=== PATIENT | male | born 1940 | race Caucasian/White ===

== ENCOUNTER → 2016-05-15 | Outpatient (CLI) | payer MEDICARE ==
[~2016-05-15] MED LIST: ACETAMINOHPEN/C1 TAB PO; ADVAIR DISKUS 21 DSK IH; CIPROFLOXACIN500 MG PO; COL-RITE100 MG PO; COREG12.5 MG PO; CYCLOBENZAPRINE10 MG PO; DUONEB 3 MG/3 ML3 M1 NEB; EXELON9.5 MG/24 T; FERROUS SULFAT325 MG PO; FLOMAX0.4 MG PO; FOSAMAX70 MG PO; LATU20TA PO; LEVAQUIN750 MG PO; LIDODERM 5% PATC1 EA T; MOTRIN IB200 MG PO; NAMENDA-14 PO; NICODERM C14 MG/241 T; NICOTINE T21 MG/24 H T; NO MED LIST; NORCO 325 MG-51 TAB PO; NORVASC10 MG PO; PERCOCET 325 MG1 TA2 PO; PREDNICOT20 MG PO; PREDNISONE10 MG PO; PREDNISONE50 MG PO; PROAIR HFA0.09 MG/AC IH; SOMA350 MG PO; SPIRIVA18 MCG IH; TYLENOL W/CODEI1 TA2 PO; TYLENOL WITH CO1 TA1 PO; VIACTIV CALCIUM PO; VISTARIL25 M1 PO; ZESTRIL,PRINIVI10 MG PO
[2016-05-15 13:45] LABS: BUN 16 mg/dl (7-24); EST GLOM FILT AFRICAN AMERICAN > 60 ml/min
== END | disposition home or self-care (01) ==
LOC: LAB 12:48 → CT 14:00
PROVIDERS: Family Medicine
DX: J44.9 Chronic obstructive pulmonary disease, unspecified (principal); I71.4 Abdominal aortic aneurysm, without rupture; J43.9 Emphysema, unspecified

== ENCOUNTER → 2017-05-05 | Outpatient (CLI) | payer MEDICARE ==
[2017-05-05 09:44] LABS: BUN 18 mg/dl (7-24); CREATININE 0.68 mg/dL (0.70-1.30)
== END | disposition home or self-care (01) ==
LOC: CT 09:12 → LAB 09:12 → CT 10:00
PROVIDERS: Family Medicine
DX: I71.4 Abdominal aortic aneurysm, without rupture (principal); I70.8 Atherosclerosis of other arteries; K76.89 Other specified diseases of liver

== ENCOUNTER → 2017-05-13 | Outpatient (CLI) | payer MEDICARE | END | disposition home or self-care (01) | LOC: CT 01:54 | DX: I71.4 Abdominal aortic aneurysm, without rupture (principal); I70.8 Atherosclerosis of other arteries; J43.9 Emphysema, unspecified; M79.606 Pain in leg, unspecified ==

== ENCOUNTER → 2017-11-12 | Outpatient (CLI) | payer MEDICARE ==
[~2017-11-12] MED LIST changes: +ACETAMINOPHEN325 M2 PO; +B12,B-12,B 12500 MC1 PO; +FOSAMAX70 M1 PO; -FOSAMAX70 MG PO; +LEVAQUIN750 M1 PO; +NATURE'S BLEND F1 MG PO; +TYLENOL WITH C1 EACH PO
== END | disposition home or self-care (01) ==
LOC: CT 09:30
DX: J43.9 Emphysema, unspecified (principal); R91.1 Solitary pulmonary nodule; Z98.890 Other specified postprocedural states

== ENCOUNTER → 2018-01-26 | Outpatient (CLI) | payer MEDICARE ==
[~2018-01-26] MED LIST changes: +ADVAIR 250/501 EA INH; +ALBUTEROL2.5 MG/0.5 NEB; +ALPRAZOLAM0.25 M2 PO; +AMLODIPINE BESY10 MG PO; +DOXYCYCLINE100 M3 PO; +MEROPENEM1 G1 IV; +PROAIR HFA8.5 GM INH; +VITAMIN D5000 UNI1 PO; +XANAX0.25 MG PO
== END | disposition home or self-care (01) ==
LOC: MRI 10:41
DX: R41.82 Altered mental status, unspecified (principal); F03.90 Unspecified dementia, unspecified severity, without behavioral disturbance, psychotic disturbance, mood disturbance, and anxiety

== ENCOUNTER 2018-02-14 20:20 | Inpatient (IN) | payer MEDICARE ==
[~2018-02-14] VITALS: Ht 180.3 cm; Wt 57.6 kg
[2018-02-14] VITALS (7 sets, daily range): BP systolic 111–124; BP diastolic 54–70
--- NOTE | ~2018-02-14 | PR ---
[place], [place] PROGRESS NOTE NAME: CLEOPATRA VARGAS [facility] #: [id number] UNIT #: [id number] ROOM: 407 DOCTOR: MARGARET GRANT MD,SEGUN BIRTHDATE: [birth year] DOS: 02/16/2018 PULMONARY PROGRESS NOTE SUBJECTIVE: The patient independently seen and examined in [id number] encounter, history was confirmed. Physical examination performed. The lab for this patient was personally reviewed for today's note. The note done by the medical imaging specialist approved as well. The patient has been feeling better. Continue intravenous cefepime twice a day for the medical management of acute pneumonia. He does have mild cough without any sputum expectoration. Denies symptoms of chest pain or hemoptysis. Appetite is noted. Denies any edema of the lower extremity and symptoms of nausea, vomiting, diarrhea, headache. I was not noted any confusion. OBJECTIVE: VITAL SIGNS: Normal temperature, respiratory rate 18, heart rate 78, blood pressure 112/58-110/52. Pulse ox saturation on 2 liters nasal cannula 97% saturation. HEENT: Head was atraumatic. Eyes nonicterus. NECK: Supple. CARDIOVASCULAR: S1, S2 is audible. LUNGS: Noted without any wheezing or crackles at the present time. ABDOMEN: Soft, nontender, bowel sounds present. EXTREMITIES: No acute edema. VISIBLE SKIN: No lesions or rashes. MUSCULOSKELETAL: Without acute deformities. LABORATORY DATA: CBC today: WBC count 22.4, hemoglobin 8.7, hematocrit 27.9, platelet count of 452,000. BMP noted BUN 21, creatinine normal, glucose 171. Remaining electrolytes normal. Blood culture from 02/14/2018 showed no bacterial growth. CT scan chest that was done without contrast was personally reviewed, patient shows evidence of a new infiltration noted in the left lower lobe, persistent infiltration in the upper lung, which has noted only partially decreased. IMPRESSION: 1. Diffuse emphysema changes were noted. 2. The patient with acute pneumonia, multifocal with current worsening treated with intravenous antibiotics also noted leukocytosis as well. 3. The patient with chronic obstructive pulmonary disease as well. 4. Past history of nicotine abuse. PLAN OF MANAGEMENT: Discontinue the Solu-Medrol because of lack of wheezing. The antibiotic will be started as imipenem to be started. Discontinue cefepime. The patient will be recommended antibiotic therapy intravenously. Rather home or prison facility at least 2-3 weeks with close monitoring. CT scan of the chest resolution of leukocytosis no other abnormality prior to discontinuation because of the current abscess like finding noted with a large pneumonia in the upper lungs. Other supportive therapy, plan of management, care plan and treatment. Usual care. Other supportive treatment as well. [place], [place] PROGRESS NOTE NAME: CLEOPATRA VARGAS UNIT #: [id number] ROOM: 407 DOCTOR: MARGARET GRANT MD,SEGUN BIRTHDATE: [birth year] Additional treatment changes will be made for the patient based on the progression of the illness. The meropenem should cover for this patient. The anaerobic organisms as well, which was suspected with a gram-positive infection. All other supportive plan of management and care, other therapy. Usual care. Additional treatment changes will be made based on progression of illness. Monitor leukocytosis as well, which is simple bronchodilators will be continued. Continue DVT prophylaxis. Thanks for allowing me to participate in the care of this patient. SEGUN ROBLES MD CM:PNTRANS [id number] SEGUN GRANT MD 02/28/18 0823 interface
--- NOTE | ~2018-02-14 | CON ---
[place], [place] REPORT OF CONSULTATION NAME: CLEOPATRA VARGAS [facility] #: [id number] UNIT #: [id number] ROOM: 407 DOCTOR: SEGUN ORTIZ MD BIRTHDATE: [birth year] DOS: 02/15/2018 PULMONARY CONSULTATION, EVALUATION AND MANAGEMENT. The patient was independently seen and examined in [id number] encounter. History was confirmed. Physical examination was performed. Labs reviewed. Assessment and management of the patient today note personally completed. The note done by the medical pathology teacher was approved. HISTORY OF PRESENT ILLNESS: This is a 77-year-old white male patient noted with extensive pneumonia involving the upper lung with possibility of mass lesion suspected in the right upper lobe. The patient has been treated with intravenous antibiotics, broad spectrum in the previous hospitalization and discharged home on doxycycline 100 mg p.o. b.i.d. The patient received tapering dose of prednisone. He has been planned for seeing in my office after discharge for a couple of weeks. The patient came into the hospital. He was complaining of symptoms of having increased shortness of breath associated with nonproductive cough and chest congestion without any hemoptysis. Denies symptoms of chest pain. The patient's cough totally has been decreased since previously. He denies symptoms of nausea, vomiting, but complains of overall weakness. He has been assessed in the Emergency Room and noted with some leukocytosis and the chest x-ray of the patient was assessed and currently admitted to the hospital. The patient was started on the intravenous antibiotics again, broad spectrum from yesterday's hospitalization. REVIEW OF SYSTEMS: Done by the medical pathology teacher and was approved. PAST MEDICAL HISTORY: Noted for: 1. Hospitalization previously in 12/2017 and treated with antibiotic. The patient is supposed to be seen in my office 2 weeks later, but has not been seen after discharge from 01/06/2018. 2. The patient with acute pneumonia noted with possible necrotizing pneumonia involving the upper lung of the patient pleural based, infiltration consolidation mass lesion was also suspected in the right upper lobe. 3. End-stage chronic obstructive pulmonary disease. 4. Chronic hypoxic respiratory failure. 5. History of thoracic aortic aneurysm. 6. Mild intermittent bronchial asthma. 7. Dementia. 8. Essential hypertension. 9. Chronic nicotine dependence. 10. Rule out mass lesion in the upper lungs. SOCIAL HISTORY: The patient is and lives at home. Noted with history of tobacco use from the age of [age] years old, 2 packs of cigarettes per day. PAST SURGICAL HISTORY: 1. Thoracic aortic aneurysm. 2. Appendectomy. 3. Fiberoptic bronchoscopy that was done on 12/27/2017. [place], [place] REPORT OF CONSULTATION NAME: CLEOPATRA VARGAS UNIT #: [id number] ROOM: 407 DOCTOR: SEGUN ORTIZ MD BIRTHDATE: [birth year] DRUG ALLERGIES: NOTED ALLERGY TO: 1. PENICILLIN CAUSING SYNCOPAL EPISODES. 2. ASPIRIN CAUSING PEPTIC ULCERS. MEDICATIONS: Current medications administered noted use of IV Solu-Medrol 60 mg b.i.d., Lovenox, DuoNeb, IV cefepime, Levaquin, vancomycin, and others. PHYSICAL EXAMINATION: GENERAL: This is a 77-year-old white male, currently noted comfortable at this time, resting on the bed without any acute distress. Height of 5 feet 11 inches, weight 127 pounds, BMI 17. VITAL SIGNS: Normal temperature, respiratory rate was noted 30 on admission, currently 20, heart rate 72-88, blood pressure 124/70-122/64. The pulse oxygen saturation noted on 2 liters nasal cannula 97% saturation. HEENT: Head was atraumatic. Eyes nonicterus. NECK: Supple. CARDIOVASCULAR: S1, S2 audible. LUNGS: Moderately decreased breath sounds without any crackles. Scattered expiratory wheezing. ABDOMEN: Soft, flat, nontender, bowel sounds present. EXTREMITIES: Without acute edema. MUSCULOSKELETAL: Without any acute deformities. CENTRAL NERVOUS SYSTEM: Cranial nerves 2-12 intact. LABORATORY DATA: The culture of the bronchial washing and BAL on 12/30/2017 noted with no bacterial growth, final results. PT/PTT was noted yesterday normal. CBC yesterday, WBC count elevated 29.9, hemoglobin 10.4, hematocrit 32.2, platelet count 430,000. CMP of the patient was done on 02/14/2018, glucose 171, BUN and creatinine normal, sodium 134. The BMP this morning, BUN 18, creatinine was normal, glucose 175. CBC, WBC count 15.8, hemoglobin 9.7, hematocrit 30.9, platelet 416,000. Chest x-ray of the patient done was noted with significant reduction of the infiltration, consolidation in the lungs with some residual disease still noted, change of COPD, hyperinflation. IMPRESSION: 1. The patient who has been currently noted with pneumonia, completed the antibiotic course over 2 weeks intravenously and then later on orally, admitted to the hospital with leukocytosis, possibly recurrent resurgence of infection can be completely excluded. 2. Acute exacerbation of chronic obstructive pulmonary disease noted. 3. History of chronic nicotine dependence as well. PLAN OF MANAGEMENT: Obtain another CT scan of the chest in the morning to assess the patient's current resolution of the pulmonary infiltration and to determine antibiotics. The patient would not require any other antibiotics except cefepime, which should cover the patient adequately for gram-negative and gram-positive organism. There was no evidence of MRSA previously noted. The antibiotic for gram-negative coverage will be changed appropriately with cefepime 2 gram b.i.d. instead of 1 gram b.i.d. The Levaquin and the vancomycin [place], [place] REPORT OF CONSULTATION [facility]: [facility] [id number] UNIT #: [id number] ROOM: 407 DOCTOR: SEGUN ORTIZ MD BIRTHDATE: [birth year] were discontinued. Other additional treatment changes will be ordered based on the progression of the illness. Usual care, other supportive therapy, plan of management, other care, plan of treatment. Usual care. Other supportive plan of treatment and therapies. Any other treatment changes necessary for the patient will be ordered after with the progression of the illness. Sputum for Gram stain culture was also ordered for the patient to assess any superimposed or any acute new infection. Monitor temperature curve of the patient closely as well. Dose of Solu-Medrol will be gradually decreased based on progression of illness. Continue DVT prophylaxis. Nicotine abstinence was discussed with the patient. Thanks for allowing me to participate in the care of this patient. SEGUN ROBLES MD CM:CONSTR:REPORT OF CONSULTATION 1327 02/28/18 0820 interface
--- NOTE | ~2018-02-14 | PROC NOTE ---
[place], [place] PROCEDURE NOTE NAME[id number] UN[facility] #: [id number] ROOM: 407 DOCTOR: LINDA DELGADO BIRTHDATE: [birth year] DOS: 02/15/2018 MODIFIED BARIUM SWALLOW LOCATION: [facility], room 407, bed 2. ORDERING PHYSICIAN: Thom Porter. RADIOLOGIST: Dr. Ji. BACKGROUND INFORMATION: The patient is a 77-year-old male who was seen for modified barium swallow. This test was ordered due to reports of difficulty swallowing food. The patient is diagnosed with sepsis and healthcare-acquired pneumonia. He has had recurrent pneumonia and was just recently discharged from the hospital. Recent chest x-ray shows new subtle infiltrate in the left mid lung. Further history is significant for COPD, hypertension, OR, anxiety, aortic aneurysm and dementia. For today's assessment, he was alert and able to follow commands. He was receiving oxygen via nasal cannula. Oral peripheral examination revealed presence of upper denture only. Lingual, labial, and buccal skills were within normal limits in terms of strength, range of motion, and coordination. The patient was able to volitionally cough and swallow. He currently received a regular diet and thin liquids. METHODS AND MATERIALS USED FOR THE EXAM: The patient was positioned in the lateral plane and the exam was viewed under fluoroscopy. The patient was presented with a variety of consistencies to assess swallowing skills including applesauce mixed with barium presented in half teaspoon amounts, barium-coated cookie and sandwich given in bite size pieces and thin liquid barium taken by cup and straw. The patient swallowed in single and consecutive sip size amounts. ORAL PHASE: The patient achieved adequate labial seal around cup, spoon and straw with no anterior loss. Bolus formation was adequate. Oral transit of cookie and sandwich was mild to moderately impaired. Mastication was slow, possibly due to absence of bottom teeth. Tongue to palate contact was within normal limits. Tongue to posterior pharyngeal wall contact was mildly impaired with puree and solids. Velar functioning was within normal limits with no nasal regurgitation. PHARYNGEAL PHASE: The pharyngeal swallow occurred within a timely manner. During the swallow, laryngeal elevation and epiglottic function were within normal limits. No penetration or aspiration occurred with any consistency. He did display pooling in the vallecula post-swallow with puree and solids. He was aware of this as he was able to completely clear it with subsequent swallow. ESOPHAGEAL PHASE: This phase of the swallow was not formally assessed during this exam. IMPRESSIONS AND RECOMMENDATIONS: Based upon assessment results, this 77-year-old patient presents with a mild to moderate oropharyngeal dysphagia [place], [place] PROCEDURE NOTE NAME: CLEOPATRA VARGAS UNIT #: [id number] ROOM: 407 DOCTOR: LINDA DELGADO BIRTHDATE: [birth year] characterized by slow mastication and propulsion possibly due to absence of bottom teeth and residue in the vallecula, which he cleared with subsequent swallow. No penetration or aspiration occurred with any consistency. Recommend the patient remain on present diet, choosing softer food items that are easier to chew. Also, recommend taking small bites and sips, chewing thoroughly and taking extra swallows as needed. Followup therapy is recommended short term to ensure tolerance of diet and adherence to safe swallow precautions. The patient was educated on results and recommendations and verbalized understanding. Thank you very much for this referral. Should you have any questions regarding this patient, please contact the speech pathologist at [phone]. LINDA DELGADO CM:PROCNOTE:PROCEDURE NOTE [id number] LINDA DELGADO
--- NOTE | ~2018-02-14 | PR ---
[place], [place] PROGRESS NOTE NAME: CLEOPATRA VARGAS UNIT #: [id number] ROOM: 407 DOCTOR: SEGUN ORTIZ MD BIRTHDATE: [birth year] DOS: 02/17/2018 PULMONARY PROGRESS ADDENDUM NOTE SUBJECTIVE: The patient was independently seen and examined in [id number] encounter. History was confirmed, physical exam performed, and labs reviewed. Assessment and management for today's note was personally completed. The recommendation was made as well for today's visit. The note done by the medical office scheduler was approved. The patient has been noted comfortable. He continues to get intravenous meropenem, which was started yesterday for the mentioned gram-negative pneumonia with anaerobic infection, responding to treatment, noted with reduction of the symptoms of cough. Denies symptoms of chest pain. OBJECTIVE: VITAL SIGNS: Reviewed, noted as normal. The pulse oxygen saturation on room air was 96% saturation. HEENT: No acute change. NECK: Supple. CARDIOVASCULAR: S1 and S2 audible. LUNGS: Without wheeze or crackles. ABDOMEN: Soft, nontender. Bowel sounds present. EXTREMITIES: Without any acute edema. LABORATORY DATA: CBC today: WBC count was 20.3. BMP this morning noted normal BUN and creatinine. IMPRESSION: 1. Acute pneumonia, necrotizing, gram-negative infection as well as anaerobic infection, currently treated with antibiotics. Oral treatment failed to treat the pneumonia as an outpatient twice requiring the hospitalization. 2. Chronic obstructive pulmonary disease without any acute exacerbation at this time. 3. History of chronic nicotine use. PLAN OF TREATMENT: Plan to transfer to a prison facility with IV antibiotic and meropenem for 3 weeks. Continue, in the meantime, other therapy, plan of management, care plan and treatment, and usual care. Supportive therapy, plan of care, and treatments. [place], [place] PROGRESS NOTE NAME: CLEOPATRA VARGAS UNIT #: [id number] ROOM: 407 DOCTOR: SEGUN ORTIZ MD BIRTHDATE: [birth year] SEGUN ROBLES MD CM:PNTRANS 1205 [id number] SEGUN GRANT MD 02/17/18 1219 interface
--- NOTE | ~2018-02-14 | PR ---
[place], [place] PROGRESS NOTE NAME: CLEOPATRA VARGAS [facility] #: [id number] UNIT #: [id number] ROOM: 407 DOCTOR: MARI GALLO DO BIRTHDATE: [birth year] DOS: 02/16/2018 SUBJECTIVE: The patient was seen and examined at the bedside. He was without complaints today and denied fevers or chills, chest pain, shortness of breath, coughing, wheezing, nausea, abdominal pain or any changes in bowel or bladder habits. OBJECTIVE: VITAL SIGNS: Show temperature at 98.1 degrees Fahrenheit, heart rate at 78, respiratory rate 18, blood pressure 112/58, pulse oximetry 97% on room air. GENERAL APPEARANCE: The patient was awake, alert, responsive, cooperative and in no acute distress. HEENT: Head was normocephalic and atraumatic. There were no lesions or ulcerations noted to the eyes. NECK: Trachea appears midline. HEART: Regular rate and rhythm were noted. Positive S1, S2 sounds were heard. No murmurs, rubs or gallops were appreciated. Bilateral lower extremities were without edema. PULMONARY: The patient was with an occasional cough on examination. No rhonchi, rales or wheezing were heard. ABDOMEN: Soft, nontender to palpation. The abdomen was nondistended. Bowel sounds were present. EXTREMITIES: Bilateral lower extremities were without edema. No clubbing, cyanosis or erythema was noted. LABORATORY DATA: CBC from today shows white count at 22.4, hemoglobin at 8.7, hematocrit 27.9, platelets at 452. Chemistries from today show sodium at 142, potassium 3.9, chloride 110, bicarbonate 26, BUN 21, creatinine 0.53, glucose 171, calcium 7.9. Microbiology remains unchanged from dictation from 02/15/2018. IMPRESSION: 1. Pneumonia. 2. Acute exacerbation of chronic obstructive pulmonary disease. 3. Tobacco abuse. 4. Underweight. 5. Leukocytosis. 6. Normocytic anemia. 7. Thrombocytosis. 8. Hyperchloremia. 9. Hyperglycemia. PLAN OF MANAGEMENT: CT scan without contrast of the chest is still pending as of today. Currently, the patient is on IV cefepime, IV Solu-Medrol, guaifenesin, maintenance fluids, normal saline at 70 mL an hour and bronchodilator therapy. Blood cultures are pending and sputum is to be collected. Again, the patient's supplemental oxygen should be titrated to maintain pulse oximetry at 92% or greater. Pulmonary medicine will continue to follow. [place], [place] PROGRESS NOTE NAME: CLEOPATRA VARGAS UNIT #: [id number] ROOM: [facility] DOCTOR: MARI GALLO DO BIRTHDATE: [birth year] Mari Gallo DO SEGUN ROBLES MD CM:AMBREEN 1040 [id number] MARI GALLO DO 02/16/18 1104 interface
--- NOTE | ~2018-02-14 | EKG ---
[place], [place] ELECTROCARDIOGRAM REPORT NAME: CLEOPATRA VARGAS UNIT #: [id number] ROOM: 407 DOCTOR: LATOYA DRAFT REPORT BIRTHDATE: [birth year] [facility] Test Date: 2018-02-14 Test Time: 20:24:51 Pat Name: CLEOPATRA VARGAS Department: Room: 407 Gender: M Access Developer: RN : 1940 Requested By: DENISE BARTLETT Order Number: [id number] Reading MD: Alfred Coburn MD Measurements Intervals [place] Rate: 91 P: 85 DE: 159 QRS: 78 QRSD: 92 T: 74 QT: 322 QTc: 397 Interpretive Statements Sinus rhythm Right atrial enlargement Probable anteroseptal infarct, old Compared to ECG 01/05/2018 03:16:17 Electronically Signed On 02-19-2018 11:05:24 PDT by Alfred Coburn MD CM:EKGRPT:ELECTROCARDIOGRAM REPORT 23 1105 DENISE TAYLOR DRAFT REPORT DENISE BARTLETT DO
--- NOTE | ~2018-02-14 | PR ---
[place], [place] PROGRESS NOTE NAME: CLEOPATRA VARGAS [facility] #: [id number] UNIT #: [id number] ROOM: 407 DOCTOR: MARI GALLO DO BIRTHDATE: [birth year] DOS: 02/18/2018 SUBJECTIVE: The patient was seen and examined at the bedside. He denies fevers, chills, chest pain, nausea or any changes in bowel or bladder habits. He does admit to an occasional cough, but states that his breathing status is overall improved. He does complain today of abdominal pain, more towards the left upper quadrant and he is wondering if this may be related to gas. OBJECTIVE: VITAL SIGNS: Show temperature 97.9 degrees Fahrenheit, heart rate 89, respiratory rate 16, blood pressure 134/79, pulse oximetry 98% on room air. GENERAL APPEARANCE: The patient was awake, alert, responsive, cooperative and in no acute distress. HEENT: Head was normocephalic and atraumatic. There are no lesions or ulcerations noted to the eyes. NECK: Trachea appears midline. HEART: Regular rate and rhythm were noted. Positive S1, S2 sounds were heard. No murmurs, rubs or gallops were appreciated. The bilateral lower extremities were without edema. PULMONARY: The lungs were with decreased breath sounds. No rhonchi, rales or wheezing were appreciated. ABDOMEN: Soft, nondistended. There was tenderness to deep palpation to the left lower quadrant and right lower quadrants. Bowel sounds were present. EXTREMITIES: Bilateral lower extremities were without edema. No clubbing, cyanosis or erythema was noted. LABORATORY DATA: Most recent CBC from today shows white count at 14.5, hemoglobin 10.7, hematocrit 34.3, platelets at 605. Most recent chemistries from today shows sodium at 141, potassium 3.7, chloride 103, bicarbonate 30, BUN 18, creatinine 0.43, glucose 61, calcium 8.0. Microbiology remains unchanged from previous dictation from 02/15/2018. IMPRESSION: 1. Pneumonia. 2. Chronic obstructive pulmonary disease without exacerbation at this point. 3. Tobacco abuse. 4. Underweight. 5. Leukocytosis. 6. Normocytic anemia. 7. Thrombocytosis, which appears to be worsening over the past few days. 8. Hypoglycemia. PLAN OF MANAGEMENT: Currently, the patient is on IV meropenem, guaifenesin and bronchodilator therapy. The patient remains stable for discharge from a pulmonary standpoint and he should receive IV meropenem for a duration of 3 weeks. It is advised that the patient follow up with Pulmonary Medicine on an outpatient basis in 2 weeks. [place], [place] PROGRESS NOTE NAME: CLEOPATRA VARGAS UNIT #: [id number] ROOM: 407 DOCTOR: MARI GALLO DO BIRTHDATE: [birth year] Mari Gallo DO SEGUN ROBLES MD CM:AMBREEN 1120 1200 MARI GALLO DO 02/18/18 1158 interface
--- NOTE | ~2018-02-14 | PR ---
[place], [place] PROGRESS NOTE NAME: CLEOPATRA VARGAS [facility] #: [id number] UNIT #: [id number] ROOM: 407 DOCTOR: MARI GALLO DO BIRTHDATE: [birth year] DOS: 02/17/2018 SUBJECTIVE: The patient was seen and examined at the bedside. He reports that he feels well. He is experiencing an occasional cough productive for clear sputum, but otherwise denies fevers, chills, chest pain, nausea, vomiting, abdominal pain or any changes in bowel or bladder habits. OBJECTIVE: VITAL SIGNS: Temperature 97.9 degrees Fahrenheit, heart rate 77, respiratory rate 20, blood pressure 109/67 and pulse oximetry 96% on room air. GENERAL APPEARANCE: The patient was awake, alert, responsive, cooperative and in no acute distress. HEENT: Head was normocephalic and atraumatic. There are no lesions or ulcerations noted to the eyes. NECK: Trachea appears midline. HEART: Regular rate and rhythm were noted. Positive S1, S2 sounds were heard. No murmurs, rubs or gallops were appreciated. Bilateral lower extremities were without edema. PULMONARY: The lungs with diminished breath sounds. No rhonchi, rales or wheezing were appreciated. ABDOMEN: Soft, nondistended, nontender to palpation. Bowel sounds were present. EXTREMITIES: Bilateral lower extremities were without edema. No clubbing, cyanosis or erythema was noted. LABORATORY DATA: CBC from today shows white count 20.3, hemoglobin 8.8, hematocrit 28.1 and platelets 520. Chemistries from today show sodium 143, potassium 3.6, chloride 109, bicarbonate 27, BUN 24, creatinine 0.49, glucose 99, calcium 7.9. Microbiology remains unchanged from previous dictation on 02/15/2018. IMPRESSION: 1. Pneumonia. 2. Tobacco abuse. 3. Underweight. 4. Leukocytosis. 5. Normocytic anemia. 6. Thrombocytosis. 7. Lymphopenia. 8. Hyperchloremia. IMAGING STUDIES: Chest CT without contrast obtained on 02/16/2018 showed severe emphysematous changes with both upper lungs demonstrating residual pneumonia seen on a prior CT on 01/05/2018. However, new findings suspicious for left lower lobe pneumonia are also seen as well as trace bilateral pleural effusions. PLAN OF MANAGEMENT: The patient is currently on IV meropenem, guaifenesin and bronchodilator therapy. Pulmonary medicine recommends IV antibiotic treatment with meropenem for 3 weeks' duration. It is recommended that the patient have a PICC line placed and afterwards he would be stable for discharge from a [place], [place] PROGRESS NOTE NAME: CLOEPATRA VARGAS UNIT #: [id number] ROOM: 407 DOCTOR: MARI GALLO DO BIRTHDATE: [birth year] pulmonary standpoint. Mari Gallo DO SEGUN ROBLES MD CM:PNTRANS [id number] MARI GALLO DO 02/17/18 1217 interface
--- NOTE | ~2018-02-14 | EKG ---
[place], [place] ELECTROCARDIOGRAM REPORT NAME: CLEOPATRA VARGAS UNIT #: [id number] ROOM: 407 DOCTOR: LATOYA DRAFT REPORT BIRTHDATE: [birth year] [facility] Test Date: 2018-02-15 Test Time: 02:10:25 Pat Name: CLEOPATRA VARGAS Department: Room: 407 Gender: M Ink Printer: Chivo Terrazas : 1940 Requested By: DENISE BARTLETT Order Number: [id number] Reading MD: Alfred Coburn MD Measurements Intervals [place] Rate: 75 P: 68 SD: 148 QRS: 78 QRSD: 92 T: 78 QT: 402 QTc: 449 Interpretive Statements Sinus rhythm Probable left atrial enlargement Anterior infarct, old Compared to ECG 01/05/2018 03:16:17 Electronically Signed On 02-19-2018 11:05:54 PDT by Alfred Coburn MD CM:EKGRPT:ELECTROCARDIOGRAM REPORT 0210 1105 DENISE TAYLOR DRAFT REPORT DENISE BARTLETT DO
--- NOTE | ~2018-02-14 | CON ---
[place], [place] REPORT OF CONSULTATION NAME: CLEOPATRA VARGAS [facility] #: [id number] UNIT #: [id number] ROOM: 407 DOCTOR: MARI GALLO DO BIRTHDATE: [birth year] DOS: 02/15/2018 REQUESTING PHYSICIAN: Hospitalist service. REASON FOR CONSULTATION: Healthcare-acquired pneumonia. HISTORY OF PRESENT ILLNESS: The patient is a 77-year-old male who initially presented to the ED on 02/14/2018 due to chest pain and shortness of breath. The patient reports that he has been short of breath for the past few days. He denies any coughing or wheezing. He states that his chest pain has been ongoing for the past week. It started in his neck and then radiated down to his anterior chest and currently it is localized to the left side of his chest. A chest x-ray obtained in the ED showed improving patchy airspace disease or consolidation of the upper lobes with new subtle infiltrates in the left mid lung compared to a prior film from December 2017. The patient was diagnosed with severe sepsis secondary to healthcare-associated pneumonia. He was admitted to the general medical floor with telemetry monitoring for further care. The Pulmonary Medicine Service was consulted for further evaluation of the patient's suspected pneumonia. PAST MEDICAL HISTORY: Includes COPD, chronic hypoxic respiratory failure, with baseline use of 3 liters supplemental O2 via nasal cannula, history of a thoracic aortic aneurysm 4.3 cm in size, history of Alzheimer dementia, hypertension, tobacco abuse, anxiety, asthma, folate deficiency, osteoporosis, vitamin B12 deficiency, vitamin D deficiency. PAST SURGICAL HISTORY: Includes history of an aortic aneurysm repair, history of an appendectomy. SOCIAL HISTORY: The patient is a current smoker, reportedly smoking only a few cigarettes daily currently, but had been smoking up to 2 packs a day for 60 years. He denies use of alcohol or illicit drugs. FAMILY HISTORY: The patient's mother in her early 20s reportedly from a penicillin allergy. The patient's father reportedly at age 61 from cancer. ALLERGIES: These include allergy to PENICILLIN and ASPIRIN. CURRENT MEDICATIONS: These include DuoNeb treatments every 4 hours, IV normal saline at 70 mL an hour, folic acid 1 mg daily, IV cefepime 2 grams daily, cholecalciferol 5000 International Units daily, IV Solu-Medrol 60 mg every 12 hours, subcutaneous Lovenox 40 mg daily, guaifenesin 1200 mg every 12 hours, IV Zosyn, IV vancomycin. REVIEW OF SYSTEMS: GENERAL: Denies fevers or chills. HEENT: Denies changes to vision, changes to hearing, any eye pain, ear pain or dysphagia. CARDIOVASCULAR: Admits to chest pain. Denies palpitations. Denies diaphoresis. [place], [place] REPORT OF CONSULTATION NAME: CLEOPATRA VARGAS UNIT #: [id number] ROOM: 407 DOCTOR: MARI GALLO DO BIRTHDATE: [birth year] RESPIRATORY: Admits to shortness of breath. Admits to dyspnea on exertion. Denies coughing. Denies wheezing. Denies production of sputum. ABDOMEN: Denies nausea, vomiting, abdominal pain, constipation, diarrhea, melena or hematochezia. GENITOURINARY: Denies dysuria, hematuria, increased urinary frequency or urgency. NEUROLOGICAL: Denies lightheadedness or dizziness. PSYCHOLOGICAL: Denies anxiety, depression or substance abuse. ENDOCRINE: Denies intolerance to cold or heat. SKIN: Denies any new rashes, ulcers or lesions. PHYSICAL EXAMINATION: VITAL SIGNS: Show temperature at 98.1 degrees Fahrenheit, heart rate at 88, respiratory rate 18, blood pressure 122/64, pulse oximetry 96% on 2 liters via nasal cannula. GENERAL APPEARANCE: The patient was awake, alert, responsive, cooperative and in no acute distress. HEENT: Head was normocephalic and atraumatic. There were no lesions or ulcerations noted to the eyes. NECK: Trachea appears midline. HEART: Regular rate and rhythm were noted. Positive S1, S2 sounds were heard. No murmurs, rubs or gallops were appreciated. The bilateral lower extremities were without edema. PULMONARY: The patient was with expiratory wheezing. No rhonchi or rales were appreciated. ABDOMEN: Soft, nontender to palpation. The abdomen was nondistended. Bowel sounds were present. EXTREMITIES: Bilateral lower extremities were without pitting edema. No clubbing, cyanosis or edema was noted. NEUROLOGIC: The patient was grossly without any focal neurologic deficits. Cranial nerves 2-12 were grossly intact. PSYCHOLOGICAL: The patient was within normal mood and affect. He was a poor historian. SKIN: Warm and dry without any induration or erythema. LABORATORY DATA: CBC From today shows white count at 15.8, hemoglobin 9.6, hematocrit 30.9, platelets 416. Chemistries from today show sodium 137, potassium 4.3, chloride 103, bicarbonate 27, BUN 18, creatinine 0.64, glucose 175, lactic acid 0.9, calcium 8.0, phosphorus 2.5, magnesium 2.2. TSH 0.296, free T4 of 1.09. Cardiac enzymes were cycled x 3 and were negative all 3 times. In terms of microbiology, blood cultures obtained on admission are pending. Sputum culture remains uncollected. IMAGING STUDIES: Chest x-ray obtained on 02/14/2018 again shows improving patchy airspace disease or consolidation of the upper lobes with a new subtle infiltrate in the left mid lung and this is in comparison to a prior film from 01/04/2018. IMPRESSION: 1. Suspected exacerbation of chronic obstructive pulmonary disease. [place], [place] REPORT OF CONSULTATION NAME: CLEOPATRA VARGAS [place] UNIT #: [id number] ROOM: [facility] DOCTOR: MARI GALLO DO BIRTHDATE: [birth year] 2. Bilateral pneumonia, but shows improvement on chest x-ray compared to prior chest x-ray from the end of December. 3. Tobacco abuse. 4. Underweight. 5. Leukocytosis, improving. 6. Normocytic anemia. 7. Thrombocytosis. 8. Leukopenia. 9. Hyperglycemia. 10. Hypermagnesemia. 11. Subclinical hypothyroidism. 12. Chronic obstructive pulmonary disease. 13. Dementia. 14. Hypertension. 15. Chronic respiratory failure, on supplemental oxygen. PLAN OF MANAGEMENT: Based on the patient's recent chest x-ray in comparison to a prior study from the end of December, his pneumonia appears to be improving and due to this antibiotics were deescalated to just IV cefepime. He also remains on IV Solu-Medrol and guaifenesin as well as bronchodilator therapy. We are pending blood cultures and sputum cultures. The patient's supplemental oxygen should be titrated to maintain pulse oximetry at 92% or greater. Pulmonary Medicine will continue to follow along. Mari Gallo DO SEGUN ROBLES MD CM:CONSTR:REPORT OF CONSULTATION 1251 02/15/18 1529 interface
--- NOTE | ~2018-02-14 | PR ---
[place], [place] PROGRESS NOTE NAME: CLEOPATRA VARGAS UNIT #: [id number] ROOM: 407 DOCTOR: SEGUN ORTIZ MD BIRTHDATE: [birth year] DOS: 02/18/2018 ADDENDUM PULMONARY PROGRESS NOTE SUBJECTIVE: The patient has been seen and examined with [id number]-[id number] encounter, history was confirmed. Physical examination performed. Labs reviewed. Assessment and management today noted personally completed. Note done by the emergency medical service manager was approved. The patient was noted comfortable at this time as supposedly to be transferred to the [facility]. The patient refused to do so, would like to be discharged home. The arrangement for home antibiotic for the patient currently been tried to be done by the social media coordinator. He has been noted comfortable at this time, sitting on the chair. Prior to this, the patient was independently seen and examined in [id number] encounter, history was confirmed, physical examination performed, and labs reviewed. Note done by the emergency medical service manager was approved. OBJECTIVE: VITAL SIGNS: For the patient was noted as normal this morning. The pulse oxygen saturation recorded at rest on room air 95% saturation. LUNGS: Noted with decreased breath sounds without any wheeze or crackles. ABDOMEN: Soft, nontender. EXTREMITIES: No edema. LABORATORY DATA: CBC today WBC count decreased to 14.5 from 20,000. IMPRESSION: The patient with acute bilateral pneumonia, currently being treated intravenous antibiotic for anaerobic infection and gram-negative infection with use of meropenem. PLAN OF TREATMENT: Continuation of meropenem antibiotic for 3 weeks as an outpatient. Outpatient assessment to be done for this patient for further continued care for assessment of progression of the pneumonia in about 10 days to 2 weeks. [place], [place] PROGRESS NOTE NAME: CLEOPATRA VARGAS UNIT #: [id number] ROOM: 407 DOCTOR: SEGUN ORTIZ MD BIRTHDATE: [birth year] SEGUN ROBLES MD CM:PNTRANS 1141 [id number] SEGUN GRANT MD 02/19/18 0125 interface
--- NOTE | ~2018-02-14 | EKG ---
[place], [place] ELECTROCARDIOGRAM REPORT NAME: CLEOPATRA VARGAS UNIT #: [id number] ROOM: 407 DOCTOR: LATOYA DRAFT REPORT BIRTHDATE: [birth year] [facility] Test Date: 2018-02-14 Test Time: 23:27:51 Pat Name: CLEOPATRA VARGAS Department: Room: 407 Gender: M Production Support Developer: Chivo Terrazas : 1940 Requested By: DENISE BARTLETT Order Number: [id number] Reading MD: Alfred Coburn MD Measurements Intervals [place] Rate: 77 P: 82 ID: [id number] QRS: 74 QRSD: 90 T: 70 QT: 379 QTc: 429 Interpretive Statements Sinus rhythm Compared to ECG 01/05/2018 03:16:17 Atrial premature complex(es) now present Electronically Signed On 02-19-2018 11:05:40 PDT by Alfred Coburn MD CM:EKGRPT:ELECTROCARDIOGRAM REPORT 2327 1105 DENISE TAYLOR DRAFT REPORT DENISE BARTLETT DO
[~2018-02-14 20:20] MED LIST changes: -ADVAIR 250/501 EA INH; -ALBUTEROL2.5 MG/0.5 NEB; -ALPRAZOLAM0.25 M2 PO; -AMLODIPINE BESY10 MG PO; -MEROPENEM1 G1 IV; -PROAIR HFA8.5 GM INH; -VITAMIN D5000 UNI1 PO; -XANAX0.25 MG PO
[2018-02-14] MEDS ORDERED: ALPRAZOLAM0.25 M2 PO (20:28)
[2018-02-14] MEDS ORDERED: CYCLOBENZAPRINE10 MG PO (20:29)
[2018-02-14] MEDS ORDERED: AMLODIPINE BESY10 MG PO (20:31)
[2018-02-14] MEDS ORDERED: PROAIR HFA8.5 GM INH (20:31)
[2018-02-14] MEDS ORDERED: FOSAMAX70 M1 PO (20:32)
[2018-02-14 20:41] LABS: HEMATOCRIT 32.2 % (42.0-52.0); HEMOGLOBIN 10.4 g/dl (14.0-18.0); MEAN CELL VOLUME 84.7 fl (80.0-94.0); MEAN CORPUSCULAR HGB 27.4 pg (27.0-31.0); MEAN CORPUSCULAR HGB CONC 32.3 g/dl (33.0-37.0); MEAN PLATELET VOLUME 9.3 fl (9.6-12.3); PLATELET COUNT AUTOMATED 430 10*3/uL (130-400); RED CELL DISTRI WIDTH 14.9 % (0-14.5); WHITE BLOOD COUNT 23.9 10*3/uL (4.8-10.8)
[2018-02-14 20:52] LABS: ACT PARTIAL THROMBO TIME 27.9 SECONDS (20.8-31.5)
[2018-02-14 20:59] LABS: ALBUMIN 2.2 gm/dl (3.1-4.5); ALKALINE PHOSPHATASE 98 U/L (45-117); BUN 15 mg/dl (7-24); CHLORIDE 100 mmol/L (98-107); POTASSIUM 3.8 mmol/L (3.5-5.1); SGOT/AST 7 IU/L (3-35); SGPT/ALT 11 U/L (12-78); SODIUM 134 mmol/L (136-145); TOTAL PROTEIN 7.6 gm/dL (6.4-8.2)
[2018-02-14 21:12] LABS: TOTAL CELLS COUNTED 100 #CELLS
[2018-02-14 21:13] LABS: PLATELET SUFFICIENCY HIGH (NORMAL)
[2018-02-15] VITALS: BP 114/48
[2018-02-15 06:06] LABS: HEMATOCRIT 30.9 % (42.0-52.0); HEMOGLOBIN 9.6 g/dl (14.0-18.0); MEAN CELL VOLUME 86.1 fl (80.0-94.0); MEAN CORPUSCULAR HGB 26.7 pg (27.0-31.0); MEAN CORPUSCULAR HGB CONC 31.1 g/dl (33.0-37.0); MEAN PLATELET VOLUME 9.4 fl (9.6-12.3); PLATELET COUNT AUTOMATED 416 10*3/uL (130-400); RED BLOOD COUNT 3.59 10*6/uL (4.50-5.90); RED CELL DISTRI WIDTH 14.8 % (0-14.5); WHITE BLOOD COUNT 15.8 10*3/uL (4.8-10.8)
[2018-02-15 06:18] LABS: BUN 18 mg/dl (7-24); CHLORIDE 103 mmol/L (98-107); CREATININE 0.64 mg/dL (0.70-1.30); FREE T4 1.09 ng/dl (0.76-1.46); PHOSPHOROUS 2.5 mg/dL (2.5-4.9); POTASSIUM 4.3 mmol/L (3.5-5.1); SODIUM 137 mmol/L (136-145)
[2018-02-15 06:24] LABS: THYROID STIM HORMONE (HS) 0.296 uIU/ml (0.358-4.75)
[2018-02-15 07:16] LABS: PLATELET SUFFICIENCY HIGH (NORMAL); POLYCHROMASIA SLIGHT; TOTAL CELLS COUNTED 100 #CELLS
[2018-02-15 07:17] LABS: ROULEAUX SLIGHT
[2018-02-15 08:00] VITALS: BP 122/64
[2018-02-15] MEDS ORDERED: ADVAIR 250/501 EA INH (09:53)
[2018-02-15] MEDS ORDERED: ALBUTEROL2.5 MG/0.5 NEB (09:58)
[2018-02-15 12:00] VITALS: BP 117/59
[2018-02-15 16:00] VITALS: BP 118/58
[2018-02-15 20:00] VITALS: BP 126/56
[2018-02-16] VITALS: BP 110/52
[2018-02-16 06:50] LABS: HEMATOCRIT 27.9 % (42.0-52.0); HEMOGLOBIN 8.7 g/dl (14.0-18.0); MEAN CELL VOLUME 86.9 fl (80.0-94.0); MEAN CORPUSCULAR HGB 27.1 pg (27.0-31.0); MEAN CORPUSCULAR HGB CONC 31.2 g/dl (33.0-37.0); MEAN PLATELET VOLUME 9.4 fl (9.6-12.3); PLATELET COUNT AUTOMATED 452 10*3/uL (130-400); RED BLOOD COUNT 3.21 10*6/uL (4.50-5.90); WHITE BLOOD COUNT 22.4 10*3/uL (4.8-10.8)
[2018-02-16 07:14] LABS: BUN 21 mg/dl (7-24); CHLORIDE 110 mmol/L (98-107); CREATININE 0.53 mg/dL (0.70-1.30); POTASSIUM 3.9 mmol/L (3.5-5.1); SODIUM 142 mmol/L (136-145)
[2018-02-16 07:41] LABS: TOTAL CELLS COUNTED 100 #CELLS
[2018-02-16 07:42] LABS: PLATELET SUFFICIENCY HIGH (NORMAL)
[2018-02-16 08:22] VITALS: BP 112/58
[2018-02-16 12:00] VITALS: BP 118/51
[2018-02-16 16:00] VITALS: BP 122/54
[2018-02-16 20:00] VITALS: BP 103/51
[2018-02-17] VITALS: BP 119/65
[2018-02-17 06:43] LABS: HEMATOCRIT 28.1 % (42.0-52.0); HEMOGLOBIN 8.8 g/dl (14.0-18.0); MEAN CELL VOLUME 85.4 fl (80.0-94.0); MEAN CORPUSCULAR HGB 26.7 pg (27.0-31.0); MEAN CORPUSCULAR HGB CONC 31.3 g/dl (33.0-37.0); MEAN PLATELET VOLUME 9.3 fl (9.6-12.3); PLATELET COUNT AUTOMATED 520 10*3/uL (130-400); RED BLOOD COUNT 3.29 10*6/uL (4.50-5.90); RED CELL DISTRI WIDTH 15.2 % (0-14.5); WHITE BLOOD COUNT 20.3 10*3/uL (4.8-10.8)
[2018-02-17 06:51] LABS: BUN 24 mg/dl (7-24); CHLORIDE 109 mmol/L (98-107); CREATININE 0.49 mg/dL (0.70-1.30); POTASSIUM 3.6 mmol/L (3.5-5.1); SODIUM 143 mmol/L (136-145)
[2018-02-17 07:26] LABS: TOTAL CELLS COUNTED 100 #CELLS
[2018-02-17 07:27] LABS: PLATELET SUFFICIENCY HIGH (NORMAL)
[2018-02-17 08:00] VITALS: BP 109/67
[2018-02-17 12:00] VITALS: BP 121/62
[2018-02-17] MEDS ORDERED: VITAMIN D5000 UNI1 PO (14:59)
[2018-02-17] MEDS ORDERED: MEROPENEM1 G1 IV (14:59)
[2018-02-17] MEDS ORDERED: ALPRAZOLAM0.25 M2 PO (14:59)
[2018-02-17 16:00] VITALS: BP 113/65
[2018-02-17 20:00] VITALS: BP 119/66
[2018-02-18] VITALS: BP 138/68
[2018-02-18 06:57] LABS: HEMOGLOBIN 10.7 g/dl (14.0-18.0); MEAN CELL VOLUME 86.6 fl (80.0-94.0); MEAN CORPUSCULAR HGB CONC 31.2 g/dl (33.0-37.0); MEAN PLATELET VOLUME 8.9 fl (9.6-12.3); PLATELET COUNT AUTOMATED 605 10*3/uL (130-400); RED BLOOD COUNT 3.96 10*6/uL (4.50-5.90); RED CELL DISTRI WIDTH 15.4 % (0-14.5); WHITE BLOOD COUNT 14.5 10*3/uL (4.8-10.8)
[2018-02-18 07:08] LABS: BUN 18 mg/dl (7-24); CHLORIDE 103 mmol/L (98-107); CREATININE 0.43 mg/dL (0.70-1.30); POTASSIUM 3.7 mmol/L (3.5-5.1); SODIUM 141 mmol/L (136-145)
[2018-02-18 07:17] LABS: HEMATOCRIT 34.3 % (42.0-52.0)
[2018-02-18 07:39] LABS: PLATELET SUFFICIENCY HIGH (NORMAL); TOTAL CELLS COUNTED 100 #CELLS
[2018-02-18 08:07] VITALS: BP 134/79
[2018-02-18 12:00] VITALS: BP 119/79
[2018-02-18 15:40] VITALS: BP 117/70
[2018-02-18 20:00] VITALS: BP 136/71
[2018-02-19] VITALS: BP 107/59
[2018-02-19 08:00] VITALS: BP 137/68
== END 2018-02-19 10:08 | disposition home or self-care (01) | DRG 871 ==
LOC: ED 20:20 → EDHOLD 21:52 → 4E 21:52
PROVIDERS: Emergency Medicine; Internal Medicine
PROC: BD1BYZZ Fluoroscopy of Mouth/Oropharynx using Other Contrast (ICD-10-PCS; principal; 2018-02-15)
DX: A41.9 Sepsis, unspecified organism (principal); E43 Unspecified severe protein-calorie malnutrition; J96.21 Acute and chronic respiratory failure with hypoxia; J15.6 Pneumonia due to other Gram-negative bacteria; E87.1 Hypo-osmolality and hyponatremia; J44.0 Chronic obstructive pulmonary disease with (acute) lower respiratory infection; Z68.1 Body mass index [BMI] 19.9 or less, adult; F41.9 Anxiety disorder, unspecified; E87.8 Other disorders of electrolyte and fluid balance, not elsewhere classified; M81.0 Age-related osteoporosis without current pathological fracture; D47.3 Essential (hemorrhagic) thrombocythemia; J45.20 Mild intermittent asthma, uncomplicated; R73.9 Hyperglycemia, unspecified; E83.41 Hypermagnesemia; E03.9 Hypothyroidism, unspecified; E53.8 Deficiency of other specified B group vitamins; G89.29 Other chronic pain; M54.9 Dorsalgia, unspecified; D64.9 Anemia, unspecified; F17.200 Nicotine dependence, unspecified, uncomplicated; G30.9 Alzheimer's disease, unspecified; F02.80 Dementia in other diseases classified elsewhere, unspecified severity, without behavioral disturbance, psychotic disturbance, mood disturbance, and anxiety; F17.210 Nicotine dependence, cigarettes, uncomplicated; R65.20 Severe sepsis without septic shock; I10 Essential (primary) hypertension; I25.2 Old myocardial infarction; Z88.0 Allergy status to penicillin; Z88.6 Allergy status to analgesic agent; Z79.899 Other long term (current) drug therapy; Z90.49 Acquired absence of other specified parts of digestive tract; Z80.9 Family history of malignant neoplasm, unspecified; Z99.81 Dependence on supplemental oxygen; Z71.6 Tobacco abuse counseling

== ENCOUNTER 2018-03-08 23:38 | Inpatient (IN) | payer MEDICARE ==
[~2018-03-08] VITALS: Ht 170.2 cm; Wt 59.5 kg
--- NOTE | ~2018-03-08 | CON ---
[place], [place] REPORT OF CONSULTATION [facility] [id number] UNIT #: [id number] ROOM: [facility] DOCTOR: MARGARET GRANT MD,SEGUN BIRTHDATE: [birth year] DOS: 03/09/2018 PULMONARY CRITICAL CARE ASSESSMENT, CONSULTATION, EVALUATION AND MANAGEMENT REASON FOR CONSULTATION: The patient acute respiratory failure with a pneumothorax, respiratory failure, mechanical ventilation and possibility of air leak with subcutaneous emphysema. HISTORY OF PRESENT ILLNESS: This is a 78-year-old white male patient presented to the Emergency Room and was assessed by the ER physician. The patient arrived in the Emergency Room at after 12:00 a.m. The patient was assessed with the chest x-ray shows evidence of basilar pneumothorax. He was also noted with hypoxia of 100% nonrebreather mask. The patient was intubated and later on 32-port chest tube was inserted in the right hemithorax. Post-insertion of the chest tube, the patient's lung was reported as expanded. He has been developing progressive subcutaneous emphysema after the chest tube and large amount of air leak was suspected with a decrease tidal volume, which has been delivered to the patient because of the possibility of air leak. The patient was seen. He has not been noted with any acute hemodynamic instability. His oxygen was noted as maintained as 90% or greater for with 45% oxygen is control, volume control, mechanical ventilation, tidal volume 450 mL. The patient has a CT scan of the chest that I ordered for patient after my initial assessment further medical management of the current assessment with subcutaneous emphysema management. REVIEW OF SYSTEMS: Could not be completed since the patient is already intubated on mechanical ventilator. PAST MEDICAL HISTORY: 1. Reviewed from past hospitalization, the patient's medical records and hospitalization recently medical history was noted with a large pneumonia, which appeared to be necrotizing involving the right upper lobe posterior subsegment in the left upper lobe as well with history of known centrilobular emphysema. 2. Past history of pneumonia, which has been treated with about 4-5 weeks of antibiotic of meropenem with the bronchoscopy culture noted negative MRSA. The patient gram-positive organism. The patient is responding to treatment, but has failed to make an appointment in the office. The patient has been asked to make an appointment, but he refused to do so last week. I was contacted by the antibiotics administration. 3. History of end-stage chronic obstructive pulmonary disease. 4. Chronic hypoxic respiratory failure. 5. History of a thoracic aortic aneurysm. 6. History of mild intermittent bronchial asthma. 7. History of past dementia. 8. Essential hypertension. 9. Nicotine dependence. 10. Questionable mass in the right upper lung versus pneumonia. PAST SURGICAL HISTORY: Noted, [place], [place] REPORT OF CONSULTATION NAME: CLEOPATRA VARGAS UNIT #: [id number] ROOM: [facility] DOCTOR: KELLY ORTIZ MDM BIRTHDATE: [birth year] 1. Thoracic aortic aneurysm repair. 2. Appendectomy. 3. Fiberoptic bronchoscopy in year 2018. SOCIAL HISTORY: The patient lives at home. He is . Does not have any history of alcohol use, illicit drug use. Tobacco use noted at age of [age] years old, 2 packs of cigarettes per day, not sure if he is currently smoking cigarettes or not. FAMILY HISTORY: Noted noncontributory. DRUG ALLERGIES: 1. REPORTED PENICILLIN CAUSING SYNCOPAL EPISODE. 2. ASPIRIN CAUSING PEPTIC ULCER DISEASE. CURRENT MEDICATIONS: Administered noted use of intravenous propofol, nicotine, Lovenox for DVT prophylaxis, DuoNeb, Mucinex, Levaquin, meropenem, Versed use and vancomycin and morphine sulfate. PHYSICAL EXAMINATION: GENERAL: This is a 78-year-old white male patient currently noted on mechanical ventilator. The patient is sedated. His height was recorded as 5 feet 7 inches, weight 131 pounds. The BMI 20.5. VITAL SIGNS: On was noted as normal temperature, respiratory rate recorded at 38-40. The heart rate of 61-59, blood pressure 103/64-134/67. The pulse oxygen saturation of the patient recorded as 100% on 45% oxygen supplementation. HEENT: Head was atraumatic. The patient is currently intubated. Orogastric tube is in place. NECK: Supple. CARDIOVASCULAR: S1, S2 audible. LUNGS: Noted with diminished breath sounds. Unable to hear breath sounds correctly because of subcutaneous emphysema, which was present in the right anterior lateral wall of the chest wall. Subcutaneous emphysema without extending to the right side of the neck. ABDOMEN: Flat, soft, nontender. Bowel sounds present. EXTREMITIES: Without any acute edema. MUSCULOSKELETAL: No deformities. SKIN: No lesions except dryness with skin changes. CENTRAL NERVOUS SYSTEM: At this time cannot be examined since the patient is sedated. LABORATORY DATA: Lactic acid this morning 1.2 at admission. CBC this morning on admission WBC count of 13.9, hemoglobin 9, hematocrit for 30.7, platelet count 319,000. The PT, PTT for the patient were noted as normal. The CMP on 03/09/2018, glucose 149, BUN normal, creatinine was normal. Albumin 2.8. The chest x-ray shows a pneumothorax present in the right lower portion of the chest. New findings compared with previous chest x-ray. The patient was intubated at that time with appropriate position. The second chest x-ray shows endotracheal tube were present in the right mid thorax with subcutaneous emphysema beginning to be seen. The chest x-ray that was done this morning was [place], [place] REPORT OF CONSULTATION NAME: CLEOPATRA VARGAS UNIT #: [id number] ROOM: [facility] DOCTOR: MARGARET GRANT MD,[facility] BIRTHDATE: [birth year] noted with enlarging subcutaneous edema, unable to assess the lung parenchyma correctly on the right side. The CT scan chest that I ordered was completed and personally examined the patient shows possibility of intraparenchymal chest tube insertion can be excluded. Large pneumothorax was noted with extensive subcutaneous emphysema, which has further worsened. Endotracheal tube was noted in appropriate position. IMPRESSION: 1. The patient who has been currently noted with air leak noted large amount of bubbling with possibly an intraparenchymal chest tube with incomplete resolution of pneumothorax with persistent air leak for this patient. 2. Acute severe hypoxic respiratory failure secondary to the current acute spontaneous pneumothorax, possibility of necrotic pneumonia resulting in spontaneous pneumothorax nearly could be considered. 3. History of chronic obstructive pulmonary disease as well with nicotine dependence noted previously. 4. The patient was managed for the pneumonia as well, possible malignant process certainly still cannot be completely excluded from the hemithorax. 5. Anemia of chronic disease. 6. Physical appearance of protein-calorie malnutrition. PLAN OF TREATMENT: The chest tube has been inserted personally for the patient in the area above, the patient after analyzing CT scan of the chest very carefully. The chest tube was still noted with large amount of air leak. The chest tube originally placed will be kept to just gravity drainage. The second chest tube was connected to suction. The tidal volume were increased 450 mL to 600 mL. The tidal volume for the patient, which effectively delivered to the patient was noted only about 135 mL to 150 mL with respiratory rate decreased to 26 with that. That should be enough resulting in good mechanical ventilatory support. The patient needs to be transferred to another facility for further assessment and management of the current air leak, chest tube management and the ventilatory support. The options of could be considered is a selective intubation of the left lung, obviously surgical intervention definitely will be needed. High frequency ventilation other similar modality could be used for the patient for current bronchopleural fistula. During the thoracotomy, the chest tube, which the first originally placed to be assessed, possibility of intraparenchymal placement. Other supportive therapy, plan of management at this time and usual care. DVT prophylaxis. Ventilator bundle management. Continue sedation. Pain management and intravenous morphine. Assessment and management discussed in detail with primary care attending, Dr. Arellano. Pulmonary critical care evaluation and management excluding any billable procedure was 50 minutes. [place], [place] REPORT OF CONSULTATION NAME: CLEOPATRA VARGAS UNIT #: [id number] ROOM: [facility] DOCTOR: SEGUN ORTIZ MD BIRTHDATE: [birth year] SEGUN ROBLES MD CM:CONSTR:REPORT OF CONSULTATION 1308 03/09/18 1629 interface
--- NOTE | ~2018-03-08 | EKG ---
[place], [place] ELECTROCARDIOGRAM REPORT NAME: CLEOPATRA VARGAS UNIT #: [id number] ROOM: [facility] DOCTOR: LATOYA DRAFT REPORT BIRTHDATE: [birth year] [facility] Test Date: 2018-03-09 Test Time: 00:05:34 Pat Name: CLEOPATRA VARGAS Department: Room: [facility] Gender: M Chief Psychology: CLAUDINE : 1940 Requested By: CARMELO VILLANUEVA Order Number: [id number] Reading MD: Alfred Coburn MD Measurements Intervals [place] Rate: 74 P: 85 [place]: 171 QRS: 85 QRSD: 105 T: 73 QT: 426 QTc: 473 Interpretive Statements Sinus rhythm Borderline right axis deviation Probable anteroseptal infarct, old Compared to ECG 02/15/2018 02:10:25 No significant changes Electronically Signed On 03-11-2018 5:59:58 PDT by Alfred Coburn MD CM:EKGRPT:ELECTROCARDIOGRAM REPORT 0005 [id number] CARMELO VILLANUEVA EPIPHANY DRAFT REPORT CARMELO VILLANUEVA
--- NOTE | ~2018-03-08 | PROC NOTE ---
[place], [place] PROCEDURE NOTE NAME: CLEOPATRA VARGAS [facility] #: [id number] UNIT #: [id number] ROOM: [facility] DOCTOR: MARGARET GRANT MD,SEGUN BIRTHDATE: [birth year] DOS: 03/09/2018 PROCEDURE: Chest tube thoracostomy in the right pleural space. PREOPERATIVE DIAGNOSES: Persistent air leak and persistent pneumothorax with previous chest tube and respiratory failure. POSTOPERATIVE DIAGNOSES: Successful insertion of the chest in the right hemithorax in the pleural space. DESCRIPTION OF PROCEDURE: Informed consent was obtained from the patient's family members. The skin was cleaned with chlorhexidine solution. The local anesthetic was injected. The couple of intercostal space above the previous chest tube was used after analyzing the CT scan chest carefully. A 1% lidocaine was administered in the skin intercostal space during admission of local anesthetic, right pleural space was entered. A small amount was free air was aspirated after large bore needle entered into the pleural space with free fluid aspirated. The guidewire threaded through the needle into the right pleural space without difficulty. Needle was removed. Tract was dilated up to 26 Tajik size. After that, the chest tube #24 Taj[place] was inserted over the guidewire in right hemithorax to 10 cm zayra. The air leak was noted. Chest x-ray was also noted confirming the appropriate placement of the chest tube. The chest tube was connected to Pleur-evac. SEGUN ROBLES MD CM:PROCNOTE:PROCEDURE NOTE 1310 1532 SEGUN GRANT MD
[~2018-03-08 23:38] MED LIST changes: +ADVAIR 250/501 EA INH; +ALBUTEROL2.5 MG/0.5 NEB; +ALPRAZOLAM0.25 M2 PO; +AMLODIPINE BESY10 MG PO; +MEROPENEM1 G1 IV; +PROAIR HFA8.5 GM INH; +VITAMIN D5000 UNI1 PO
[2018-03-08 23:39] VITALS: BP 110/66
[2018-03-08 23:49] VITALS: BP 110/66
[2018-03-09] VITALS (47 sets, daily range): BP systolic 92–140; BP diastolic 44–92
[2018-03-09 00:37] LABS: BASO # 0.1 10*3/uL (0.0-0.1); BASO % 0.5 % (0.0-1.0); EOS # 0.3 10*3/uL (0.0-0.4); EOS % 2.3 % (1.0-4.0); HEMATOCRIT 30.7 % (42.0-52.0); HEMOGLOBIN 9.6 g/dl (14.0-18.0); LYMPH # 1.6 10*3/uL (1.3-4.4); LYMPH % 11.8 % (27.0-41.0); MEAN CORPUSCULAR HGB 26.6 pg (27.0-31.0); MEAN CORPUSCULAR HGB CONC 31.3 g/dl (33.0-37.0); MEAN PLATELET VOLUME 9.4 fl (9.6-12.3); MONO # 0.8 10*3/uL (0.1-1.0); MONO % 5.8 % (3.0-9.0); NEUT % 79.1 % (47.0-73.0); PLATELET COUNT AUTOMATED 319 10*3/uL (130-400); RED BLOOD COUNT 3.61 10*6/uL (4.50-5.90); RED CELL DISTRI WIDTH 15.8 % (0-14.5); WHITE BLOOD COUNT 13.9 10*3/uL (4.8-10.8)
[2018-03-09 00:47] LABS: ACT PARTIAL THROMBO TIME 23.3 SECONDS (20.8-31.5)
[2018-03-09 00:56] LABS: ALBUMIN 2.8 gm/dl (3.1-4.5); ALKALINE PHOSPHATASE 92 U/L (45-117); BUN 15 mg/dl (7-24); CHLORIDE 106 mmol/L (98-107); CREATININE 0.72 mg/dL (0.70-1.30); POTASSIUM 3.9 mmol/L (3.5-5.1); SGOT/AST 16 IU/L (3-35); SGPT/ALT 13 U/L (12-78); SODIUM 142 mmol/L (136-145)
[2018-03-09 00:57] LABS: TROPONIN I < 0.015 ng/ml (<0.045)
[2018-03-09 03:13] LABS: ABG BASE EXCESS 0.1 mmol/L (-2.0-2.0); ABG HCO3 22.7 mmol/l (22-26); ARTERIAL BLOOD GAS PCO2 29.1 mmHg (35-45); ARTERIAL BLOOD GAS PH 7.5 (7.35-7.45)
[2018-03-09 06:29] LABS: BASO % 0.4 % (0.0-1.0); EOS # 0.1 10*3/uL (0.0-0.4); EOS % 0.8 % (1.0-4.0); HEMATOCRIT 27.6 % (42.0-52.0); HEMOGLOBIN 8.6 g/dl (14.0-18.0); LYMPH # 1.5 10*3/uL (1.3-4.4); MEAN CELL VOLUME 82.9 fl (80.0-94.0); MEAN CORPUSCULAR HGB 25.8 pg (27.0-31.0); MEAN CORPUSCULAR HGB CONC 31.2 g/dl (33.0-37.0); MEAN PLATELET VOLUME 9.5 fl (9.6-12.3); MONO # 0.7 10*3/uL (0.1-1.0); MONO % 6.4 % (3.0-9.0); NEUT # 8.9 10*3/uL (2.3-7.9); PLATELET COUNT AUTOMATED 275 10*3/uL (130-400); RED BLOOD COUNT 3.33 10*6/uL (4.50-5.90); RED CELL DISTRI WIDTH 15.6 % (0-14.5); WHITE BLOOD COUNT 11.3 10*3/uL (4.8-10.8)
[2018-03-09 06:48] LABS: ALBUMIN 2.5 gm/dl (3.1-4.5); ALKALINE PHOSPHATASE 77 U/L (45-117); BUN 11 mg/dl (7-24); CHLORIDE 109 mmol/L (98-107); CREATININE 0.56 mg/dL (0.70-1.30); PHOSPHOROUS 1.1 mg/dL (2.5-4.9); POTASSIUM 3.1 mmol/L (3.5-5.1); SGOT/AST 14 IU/L (3-35); SGPT/ALT 12 U/L (12-78); SODIUM 142 mmol/L (136-145)
[2018-03-09 07:38] LABS: ABG BASE EXCESS -2.4 mmol/L (-2.0-2.0); ABG HCO3 22.6 mmol/l (22-26); ABG O2 SATURATION 98.7 % (95-97); ARTERIAL BLOOD GAS PCO2 40.1 mmHg (35-45); ARTERIAL BLOOD GAS PH 7.362 (7.35-7.45)
[2018-03-09 07:39] LABS: BILIRUBIN NEGATIVE (NEGATIVE); BLOOD 2+ (NEGATIVE); CLARITY CLEAR (CLEAR); COLOR YELLOW (YELLOW); GLUCOSE NEGATIVE (NEGATIVE); KETONE NEGATIVE (NEGATIVE); LEUKO ESTERASE NEGATIVE (NEGATIVE); NITRITE NEGATIVE (NEGATIVE); PH 7.5 (5.0-9.0); UROBILINOGEN 0.2 E.U./dl (0.2-1.0)
[2018-03-09 07:56] LABS: BACTERIA TRACE; EPITHELIAL CELLS 0-2; RBC 51-100 rbc/hpf (0-2)
[2018-03-09] MEDS ORDERED: XANAX0.25 MG PO (09:37)
[2018-03-09 15:16] LABS: ABG BASE EXCESS -1.8 mmol/L (-2.0-2.0); ABG O2 SATURATION 97.9 % (95-97); ARTERIAL BLOOD GAS PCO2 20.2 mmHg (35-45); ARTERIAL BLOOD GAS PH 7.579 (7.35-7.45); ARTERIAL BLOOD GAS PO2 81.2 mmHg (80-90)
== END 2018-03-09 15:20 | disposition short-term general hospital (02) | DRG 871 ==
LOC: ED 23:38 → ICCU 03-09 01:36 → EDHOLD 03-09 01:36 → ICCU 03-09 06:27
PROVIDERS: Internal Medicine; Internal Medicine Critical Care Medicine; Internal Medicine Nephrology; Student in an Organized Health Care Education/Training Program
DX: A41.9 Sepsis, unspecified organism (principal); J18.9 Pneumonia, unspecified organism; J96.01 Acute respiratory failure with hypoxia; J93.9 Pneumothorax, unspecified; E44.0 Moderate protein-calorie malnutrition; F41.9 Anxiety disorder, unspecified; F03.90 Unspecified dementia, unspecified severity, without behavioral disturbance, psychotic disturbance, mood disturbance, and anxiety; G89.29 Other chronic pain; M54.9 Dorsalgia, unspecified; I10 Essential (primary) hypertension; F17.210 Nicotine dependence, cigarettes, uncomplicated; R65.20 Severe sepsis without septic shock; D72.810 Lymphocytopenia; R73.9 Hyperglycemia, unspecified; J43.2 Centrilobular emphysema; E55.9 Vitamin D deficiency, unspecified; E53.8 Deficiency of other specified B group vitamins; Z99.81 Dependence on supplemental oxygen; M81.0 Age-related osteoporosis without current pathological fracture; R63.6 Underweight; D63.8 Anemia in other chronic diseases classified elsewhere; Z90.49 Acquired absence of other specified parts of digestive tract; Z84.89 Family history of other specified conditions; Z80.8 Family history of malignant neoplasm of other organs or systems; Z88.0 Allergy status to penicillin; Z68.20 Body mass index [BMI] 20.0-20.9, adult

== ENCOUNTER 2019-01-17 11:06 | Emergency (ER) | payer MEDICARE ==
[~2019-01-17] VITALS: Ht 180.3 cm; Wt 62.1 kg
[~2019-01-17 11:06] MED LIST changes: +XANAX0.25 MG PO
[2019-01-17] MEDS ORDERED: PREDNISONE20 M1 PO (13:23)
== END 2019-01-17 13:37 | disposition home or self-care (01) ==
LOC: ED 11:06
DX: G89.29 Other chronic pain (principal); M54.5 Low back pain; M25.552 Pain in left hip; F17.210 Nicotine dependence, cigarettes, uncomplicated; Z88.0 Allergy status to penicillin; Z88.6 Allergy status to analgesic agent; Z79.899 Other long term (current) drug therapy

== ENCOUNTER 2019-04-19 22:53 | Inpatient (IN) | payer MEDICARE ==
[~2019-04-19 22:53] MED LIST changes: +PREDNISONE20 M1 PO
[2019-04-19 23:20] VITALS: BP 165/70
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
--- NOTE | 2019-04-19 23:50 | NUR ---
ATIVAN GIVEN FOR ANXIETY
[2019-04-20] MEDS ORDERED: CALCITONIN-SAL3.7 ML NAS (00:07)
[2019-04-20] MEDS ORDERED: IRON325 M3 PO (00:11)
[2019-04-20] MEDS ORDERED: XANAX0.5 MG PO (00:12)
[2019-04-20] MEDS ORDERED: DONEPEZIL HYDROC5 MG PO (00:15)
[2019-04-20] MEDS ORDERED: LIDOCAINE PAIN1 EACH T (00:16)
[2019-04-20] MEDS ORDERED: NICODERM CQ1 EAC2 T (00:17)
--- NOTE | 2019-04-20 00:19 | NUR ---
DR MURPHY NOTIFIED OF ADMISSION
--- NOTE | 2019-04-20 02:15 | NUR ---
DR BUTTS HERE TO SEE CLIENT
--- NOTE | 2019-04-20 06:35 | NUR ---
SLEPT 6 HOURS UNINTERUPTED
[2019-04-20 07:46] VITALS: BP 124/85
--- NOTE | 2019-04-20 08:15 | NUR ---
Treatment Plan meeting was held with Dr. Tran, RN, AT, RESOLUTION SPECIALIST-S and Shop Steward. Plan for discharge next week. Pt. is from Home. Will speak to family to discuss discharge Plans.
--- NOTE | 2019-04-20 11:39 | NUR ---
AM GROUP NO AM GROUP WAS CONDUCTED NURSING STUDENTS WERE PRESENT. PT HAS NOT YET BEEN ASSESSED OR GOALS SET. WILL ATTEMPT THIS AFTERNOON
--- NOTE | 2019-04-20 15:41 | NUR ---
PM GROUP/BINGO PT WAS PRESENT FOR AFTERNOON GROUP THERAPY BUT DID NOT PARTICIPATE IN BINGO. PT READ THE NEWSPAPER FOR A WHILE AND WAS HYPERVERBAL. PT IS GRANDIOUS AND DELUSIONAL. 

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
[2019-04-20 19:13] VITALS: BP 134/85
--- NOTE | 2019-04-20 22:22 | NUR ---
MANIC, GRANDIOUS, DISRUPTING. VOICE LOUD. NON STOP FLIGHT OF IDEA TALKING. THINKS HE AND LAID IN THE HOSPITAL BASEMENT THEN [place] FROM THE BECAUSE GOD SAID HE WASN'T READY FOR HIM YET AND TO COME PROTECT THE CHILDREN. CONTINUES TANGENTIAL SPEECH. UNABLE TO REDIRECT HIM OR HOLD MEANINGFUL CONVERSATION HE MUST DOMINATE THE TOPIC. WILL CONTINUE TO REDIRECT AND PROVIDE EMOTIONAL SUPPORT
--- NOTE | 2019-04-21 03:11 | NUR ---
24 HR chart check completed.
[2019-04-21 07:39] LABS: VITAMIN D, 25-HYDROXY 17.9 ng/mL (30-100)
[2019-04-21 08:00] VITALS: BP 136/87
--- NOTE | 2019-04-21 08:15 | NUR ---
Treatment Plan meeting was held with Dr. Tran, RN, AT, LABEL FUSER TENDER-S and Head Swamper in attendance. Plan for discharge Next week. Pt. will return home at discharge with his and Home Health.
--- NOTE | 2019-04-21 08:15 | NUR ---
DR ANNA ON UNIT TO SEE PATIENT
--- NOTE | 2019-04-21 09:05 | NUR ---
PHYSICAL THERAPY Eval completed, pt independent with transfers, amb in hallway independently with good balance, no issues or concerns per stafff. D/C PT at this time no skilled needs, thank you. Anel Carreon PT
--- NOTE | 2019-04-21 11:36 | NUR ---
AM GROUP/EXERCISE AND BRAIN GAMES PT ATTENDED MORNING GROUP THERAPY AND PARTICIPATED MINIMALLY IN THE EXERCISES. PT IS HYPERVERBAL AND AGITATED STATING, "I'M GONNA CALL MY EDITORIAL CARTOONIST AND I WILL HAVE THIS PLACE SHUT DOWN BY MIDNIGHT". PT IS GRANDIOUS AND WILL NOT ACCEPT ANY REALITY. PT CANNOT BE REDIRECTED AT THIS TIME.
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
--- NOTE | 2019-04-21 13:51 | NUR ---
Occupational Therapy evaluation completed on 3 with full eval to follow. Precautions include 3n unit precautions,impulsive,talkative/manic,low complexity level 56123. Recommend no further OT and return home w/ upon d/c. Thank you. Gregorio Richards OTR/L
--- NOTE | 2019-04-21 14:14 | NUR ---
PATIENT IN DINING AREA AT THIS TIME. PATIENT CONTINUES WITH FLIGHT OF IDEAS AND WITH GRANDIOSE DELUSIONS. PATIENT STATING "I KNOW THE CRAFT CENTER DIRECTOR OF THIS HOSPITAL HERE AT THE [facility], I CAN HAVE ALL OVER YOUR JOBS". THIS NURSE WITH ATTEMPT TO DISTRACT AND REDIRECT PATIENT. PATIENT STATING "I'M 86 YEARS OLD AND THAT'S ALL LIKE TO DO IS TALK TO YOU ALL".
--- NOTE | 2019-04-21 14:46 | NUR ---
Shift chart check completed.
--- NOTE | 2019-04-21 15:25 | NUR ---
DR LUCERO UPDATED ABOUT PATIENT REQUEST FOR EYE DROPS FOR DRY EYES. NEW ORDER FOR EYE DROPS PRN RECEIVED
--- NOTE | 2019-04-21 15:35 | NUR ---
PM GROUP/LEISURE INTERESTS PT ATTENDED AFTERNOON GROUP AND PARTICIPATED BY READING THE NEWSPAPER AND PLAYING 500 WITH THIS BRUSH MAKER. PT WAS STILL HYPERVERBAL BUT LESS GRANDIOUS AND WAS REMINISCING. PT EXHIBITED NO AGITATION AND STATED, "IF I HAVE TO STAY HERE A WHILE, WELL THAT'S OKAY, YOU ALL HAVE BEEN SO NICE TO ME"
[2019-04-21 19:40] VITALS: BP 135/85
--- NOTE | 2019-04-22 04:34 | NUR ---
24 HR chart check completed.
--- NOTE | 2019-04-22 04:44 | NUR ---
p- REMAINS HYPERVERBAL WITH GRANDIOS DELUSIONS. i- ENCOURAGE MEDICATION COMPLIANCE AND REDIRECT. r - MED COMPLIANT WITH MEDS. 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
--- NOTE | 2019-04-22 05:26 | NUR ---
PATIENT SLEPT ABOUT 5 HOURS UNINTERRUPTED. WAS MEDICATED WITH PRN TYLENOL AT 12:10 FOR C/O BACK PAIN. MEDICATION HELPFUL.
[2019-04-22 07:52] VITALS: BP 123/73
--- NOTE | 2019-04-22 08:08 | NUR ---
DR. JOHN ON UNIT TO ASSESS PT, UPDATE PROVIDED.
--- NOTE | 2019-04-22 10:17 | NUR ---
P: PT GRANDIOSE, STATING TO STAFF THAT HIS GRANDFATHER LIVED TO BE 136 YEARS OLD AND HE HOPE HE LIVES THAT LONG. PT HYPERVERBAL AND INTRUSIVE/DISRUPTIVE TO OTHERS I: PRESENT REALITY AND RE-ORIENT, PROVIDE EMOTIONAL SUPPORT AND 1:1 FOR PT TO VOICE FEELINGS, ENCOURAGE MED COMPLIANCE R: PT ALERT TO PERSON AND PLACE. PT CONTINUES TO TALK NON-STOP AND BE INTRUSIVE/DISRUPTIVE TO OTHERS. PT UNRECEPTIVE TO RE-ORIENTATION, REMAINS GRANDIOSE. PT AMBULATORY THROUGHOUT THE UNIT, GAIT STEADY. PT CONTINENT OF BOWEL AND BLADDER. PT SHOWERED THIS SHIFT. PT DENIES ANY SUICIDAL THOUGHTS. NO HALLUCINATIONS NOTED P: MONITOR PT BEHAVIORS ON Q15 MIN SAFETY CHECKS, ENCOURAGE MED COMPLIANCE AND PROVIDE MED EDUCATION, PROVIDE EMOTIONAL SUPPORT AND 1:1 FOR PT TO VOICE FEELINGS, PRESENT REALITY AND RE-ORIENT
--- NOTE | 2019-04-22 11:54 | NUR ---
AM GROUP/EXERCISE/MUSIC/GAMES PT ATTENDED AND PARTICIPATED IN ALL GROUP ACTIVITIES. PT PLEASANT AND ON TASK ALTHOUGH HYPER VERBAL PT DID NOT EXPRESS ANY AGITATION OR PARANOID DELUSIONS AT THIS TIME. PT WILL CONTINUE TO ATTEND AN DPARTICIPATE IN FUTURE GROUP SESSIONS.
--- NOTE | 2019-04-22 15:51 | NUR ---
PM GROUP/CRAFTS/MUSIC PT ATTENDED AND PARTICIPATED IN ALL ACTIVITY'S. PT PLEASANT AND CONTINUES TO BE HYPERVERBAL. PT EXPRESSED NO AGITATION OR PARANOID DELUSIONS AT THIS TIME. PT WILL CONTINUE TO ATTEND AND PARTICIPATE IN FUTURE GROUP SESSIONS.
[2019-04-22 19:58] VITALS: BP 122/75
--- NOTE | 2019-04-22 21:47 | NUR ---
Patient alert to person with confusion noted. ST/LT memory deficits noted. Patient having flight of ideas and very hyperverbal. No signs of any hallucinations noted at this time. Patient compliant with HS medications without any difficulty. Redirected/reoriented as needed. Provided emotional support also as needed. Plan to continue to encourage medication compliance and continue to provide emotional support. Also continue to redirect/reorient when needed/appropriate. Will continue to monitor moods and behaviors. Q 15 minute safety checks continued and maintained. See [facility] flowsheet for further documentation.
--- NOTE | 2019-04-23 00:16 | NUR ---
24 HR chart check completed.
--- NOTE | 2019-04-23 06:35 | NUR ---
Patient slept approx. 8+ hours throughout shift. Q 15 minute safety checks continued and maintained.
--- NOTE | 2019-04-23 08:06 | NUR ---
PT AWAKE, ALERT AND VERBAL. RESPS EASY AND EVEN ON ROOM AIR. EATING BREAKFAST WITH PEERS IN DINING ROOM AT THIS TIME. ARABELLA PMHNP-BC ON UNIT TO SEE PT AT THIS TIME, UPDATE GIVEN.
[2019-04-23 08:49] VITALS: BP 125/67
--- NOTE | 2019-04-23 09:25 | NUR ---
AND ON UNIT TO SEE PT AT THIS TIME.
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
--- NOTE | 2019-04-23 14:02 | NUR ---
ON UNIT TO ASSESS PT AT THIS TIME. STATES THE SMALL AMOUNT OF EDEMA PRESENT CAN LIKELY BE ATTRIBUTED TO AMLODIPINE. NNO RECEIVED AT THIS TIME.
--- NOTE | 2019-04-23 14:10 | NUR ---
PRN TYLENOL 650MG PO GIVEN AT THIS TIME PER PT REQUEST FOR C/O LOW BACK PAIN RATED LEVEL 6/10. PT STATES "ITS NOT TOO BAD BUT I WANT TO TAKE THIS TYLENOL AND GO LAY DOWN". WILL MONITOR FOR MEDICATION EFFECTIVENESS.
[2019-04-23 17:35] VITALS: BP 138/74
--- NOTE | 2019-04-23 17:35 | NUR ---
PT STATES TYLENOL GIVEN EARLIER IN THE SHIFT EFFECTIVE FOR RELIEF OF PAIN.
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
--- NOTE | 2019-04-23 21:41 | NUR ---
TYLENOL GIVEN FOR C/O 9/10 BACK PAIN. P--GRANDIOSE AND DELUSIONAL I--TRIED TO DISCUSS THE EVENTS OF THE DAY WITHOUT SUCCESS. REVIEWED HIS MEDICATIONS. GAVE HIM TIME FOR A 1:1. ASKED WHERE LEFT EAR HEARING AID WAS. 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 THOSE DAUGHTERS OF MINE TOOK MY HEARING AID AND SAID THEY WOULD CHARGE IT UP AND BRING IT BACK BUT THEY DIDN'T COME AT NOON. YEAH MY BACK HURTS SO I NEED TYLENOL OR I CAN'T SLEEP P-CONTINUE REDIRECTION. MONITOR FOR CHANGES IN MOOD/BEHAVIOR/ MONITOR PAIN LEVEL AND SAFETY. PROVIDE EMOTIONAL SUPPORT.
--- NOTE | 2019-04-23 23:00 | NUR ---
EYES CLOSED. RESP EASY. APPEARS TYLENOL EFFECTIVE
--- NOTE | 2019-04-24 03:05 | NUR ---
TYLENOL GIVEN FOR C/O 02/16/ BACK PAIN
--- NOTE | 2019-04-24 04:51 | NUR ---
APPEARS TYLENOL EFFECTIVE. RESTING WITH EYES OPENENED 24 HR chart check completed.
[2019-04-24 07:54] VITALS: BP 154/69
--- NOTE | 2019-04-24 08:15 | NUR ---
Treatment Plan meeting was held with Dr. Tran, RN, AT, CRISIS NURSE-S and Elevator Service Mechanic in attendance. Plan for discharge at the end of the week, beginning of next week. Pt. will return home with his .
--- NOTE | 2019-04-24 08:40 | NUR ---
ON UNIT TO SEE PT AT THIS TIME.
--- NOTE | 2019-04-24 10:07 | NUR ---
PRN CEPACOL LOZENGE GIVEN AT THIS TIME PER PT REQUEST FOR C/O SORE THROAT. WILL MONITOR FOR EFFECTIVENESS.
--- NOTE | 2019-04-24 10:10 | NUR ---
PT REQUESTS TOENAILS BE CLIPPED. THIS NURSE ASSESSED, TOENAILS LONG, NO EDEMA NOTED TO FEET OR ANKLES. MADE AWARE, STATES TO ORDER PODIATRY CONSULT.
--- NOTE | 2019-04-24 11:00 | NUR ---
CEPACOL EFFECTIVE AT THIS TIME.
--- NOTE | 2019-04-24 11:06 | NUR ---
CALL PLACED TO PODIATRY RESIDENT AT [phone], MADE AWARE OF CONSULT FOR TOENAIL CARE.
--- NOTE | 2019-04-24 11:39 | NUR ---
AM GROUP/EXERCISE AND CURRENT EVENTS PT WAS PRESENT FOR MORNING GROUP THERAPY BUT DID NOT PARTICIPATE. PT WAS LESS HYPERVERBAL THAN LAST WEEK. PT WAS PLEASANT AND EXHIBITED NO AGITATION WHILE IN GROUP
--- NOTE | 2019-04-24 12:41 | NUR ---
Met with pt prior to his discharge today. Informed pt that there are no AA groups within walking distance of his home. Did provide pt with information about [facility], which is near to pt, that provides meetings for those fighting addictions. Pt stated that he felt ready for discharge and that he is looking forward to going home. Pt denies depression and suicidal ideations. Also provided pt with a brochure for [employer] [facility] to assist with pt's transportation needs.
--- NOTE | 2019-04-24 12:45 | NUR ---
Patient is discharging to home today. Follow-up was scheduled with Shazia MESA at [facility], who will then refer pt for psychiatry and case management. Patient was pleasant and cooperative during his stay. He had a tendency to remain outside of group activities. Pt denied depressed mood at discharge. Pt did voice that he would like to stop ETOH abuse but was not interested in anything other than AA meetings. Explored options for pt and there were no meetings within walking distance of pt's home. Pt was given information about [facility], which is located near pt's home.
--- NOTE | 2019-04-24 12:55 | NUR ---
PROVIDED PHYSICIAN SIGNED ORIGINAL DNR[facility] PAPERWORK FROM HOME. COPY PLACED ON PT CHART AND COMPUTER UPDATED.
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
--- NOTE | 2019-04-24 14:18 | NUR ---
PT REQUESTS CEPACOL LOZENGE AT THIS TIME. FREQUENCY IS EVERY 6 HOURS PER PHYSICIAN ORDER. CALL PLACED TO , STATES HE WILL ADJUST FREQUENCY.
--- NOTE | 2019-04-24 15:38 | NUR ---
PM GROUP/WREATHS PT ATTENDED AND PARTICIPATED IN ALL GROUP ACTIVITIES. PT WAS TALKATIVE BUT ON TASK. PT EXPRESSED NO DELUSIONS WHILE IN GROUP.
--- NOTE | 2019-04-24 15:56 | NUR ---
PRN CEPACOL LOZENGE GIVEN AT THIS TIME PER PT REQUEST FOR C/O "SCRATCHY" THROAT. WILL MONITOR FOR EFFECTIVENESS.
--- NOTE | 2019-04-24 16:29 | NUR ---
SHIFT CHART CHECK COMPLETED.
[2019-04-24 16:59] VITALS: BP 125/77
[2019-04-24 19:35] VITALS: BP 128/72
--- NOTE | 2019-04-24 19:35 | NUR ---
one hearing aid given at clients request. one remains on charge
--- NOTE | 2019-04-24 20:42 | NUR ---
EVENING/MUSIC/CRAFTS/GAME PT IN ATTENDANCE AND PARTICIPATING IN ALL ACTIVITY. PT PLEASANT AND ON TASK. PT VERBAL BUT NOT HYPERVERBAL AT THIS TIME.PT DID NOT BECOME AGITATION OR EXPRESS ANY PARANOIA AT THIS TIME. PT WILL CONTINUE TO ATTEND AND PARTICIPATE IN FUTURE GROUP SESSIONS.
--- NOTE | 2019-04-24 21:12 | NUR ---
P--GRANDIOSE, FLIGHT OF IDEAS, CHATTY I--DISCUSSED DAILY ACTIVITIES. NEEDS REFOCUSING TO STAY ON TOPIC. PREOCCUPIED WITH FUNERALS. DISCUSSED MEDICATIONS. PAIN PATCH IN PLACE. THROAT LOZENGER GIVEN PER REQUEST R--OH I HAVE PAIN FOR 7 FUNERALS IN LAST 3 YRS. LAST WAS MY NEPHEWS AND IT WAS DARN NEAR 7K. MY DADDY SAID GIVE AND YOU WILL BE REWARDED BUT I HAVEN'T GOTTEN ANY MONEY BUT I HAVE GOTTEN LOVE. GUESS THATS IMPORTANT. BOY MY THROAT HURTS CAN I HAVE A LOZENGE? I GUESS ITS BECAUSE I TALK TOO MUCH P-MONITOR FOR CHANGES IN BEHAVIOR/MOOD. PROVIDE EMOTIONAL SUPPORT.
--- NOTE | 2019-04-25 04:16 | NUR ---
24 HR chart check completed.
[2019-04-25 07:38] VITALS: BP 146/70
--- NOTE | 2019-04-25 08:15 | NUR ---
Treatment Plan meeting was held with Nurse Practitioner, RN, AT, BONITA-S and Harbor Tug Captain in attendance. Plan for discharge at the end of the week, beginning of next week. Pt. will return home with [facility].
--- NOTE | 2019-04-25 08:20 | NUR ---
MYNOR GILBERT ON UNIT TO SEE PATIENT
--- NOTE | 2019-04-25 09:39 | NUR ---
PATIENT COMPLAINING OF THROAT PAIN. RATING PAIN 9/10. PRN TYLENOL 650MG PO GIVE AT THIS TIME.
--- NOTE | 2019-04-25 10:39 | NUR ---
PATIENT RESTING IN BED, NO FURTHER COMPLAINTS OF PAIN, PRN TYLENOL EFFECTIVE.
--- NOTE | 2019-04-25 11:36 | NUR ---
AM GROUP PT WAS PRESENT AT THE START OF MORNING GROUP THERAPY SITTING IN A CHAIR WITH A BLANKET OVER HIS SHOULDERS. PT WAS UNCHARACTERISTICALLY QUIET. PT WAS ASKED AND STATED, "I AM JUST WORE OUT AND I'M HAVING TROUBLE BREATHING." PT DID READ THE NEWSPAPER FOR A SHORT TIME BUT GOT UP AND LEFT STATING, "I'M GOING TO LAY DOWN"
--- NOTE | 2019-04-25 13:20 | NUR ---
SPEECH PATHOLOGY Clinical swallowing evaluation completed as per orders due to difficulty swallowing food. Patient has recently been complaining of sore throat. He was admitted with brief psychotic disorder with further medical history including COPD, HTN, asthma, dementia, anxiety and acute respiratory failure. He was pleasant and cooperative during assessment which was conducted during lunchtime meal. Patient stated that his throat began hurting yesterday and that it has been hard to swallow since that time. He receives a regular diet and thin liquid. Oral exam revealed presence of dentures with adequate fit reported. Lingual/labial and buccal skills were WNL in terms of strength, ROM and coordination. Patient consumed peaches, ice cream and liquids during the meal with no overt difficulty. He had a sandwich which he did not eat, stating he did not think he could swallow it due to his sore throat. Overall, he appears to safely tolerate regular diet and thin liquids and his recent difficulty is most likely due to sore throat. Staff reports that he seems to be coming down with something as he has recently been complaining of not feeling well and has been more tired than usual. Recommend patient remain on present diet. Short term follow up will be conducted to ensure safety of swallowing. Results and monster. were shared with patient and his nurse and they verbalized understanding. Refer to report in [employer] for further information. Thank you for this referral. LINDA DELGADO MSCCC-CHIEF LEGAL OFFICER
--- NOTE | 2019-04-25 13:45 | NUR ---
CHIEF OF SAFETY AND PROTECTION PRESENT AND PATIENT READY FOR DISCHARGE. PATIENT ASSISTED INTO WHEELCHAIR. ALL BELONGING AND DISCHARGE INSTRUCTIONS SENT WITH PATIENT OFF UNIT WITH STAFF TO FACILITY [facility]. NURSE TO NURSE REPORT GIVEN TO LUIS PARDO [facility].
--- NOTE | 2019-04-25 15:07 | NUR ---
Pt was pleasant with this marketing underwriter during conversation. Pt remains delusional voicing a belief that he could not swallow earlier today. Because of this, he believes that he had surgery on his throuat this AM and is now waiting on further testing. Pt remains hyperverbal with a slight improvement noted.
--- NOTE | 2019-04-25 16:17 | NUR ---
P:PATIENT VOICED DELUSIONAL STATEMENTS, STATING TO STAFF AND OTHER PATIENTS "I OVER THERE (POINTING TO ACROSS THE WORKMAN) THREE TIMES, HAD TO BE REVIVED. I KNOW THE HEAD SURGEON" "I'VE BEEN FRIENDS THE WITH OWNERS AND SURGEON OF THIS HOSPITAL FOR YEARS." I: ONE ON ONE FOR EMOTIONAL SUPPORT AND REDIRECTION NEEDED. R: ONE ON ONE EFFECTIVE. PATIENT IS ALERT TO PERSON, PLACE, TIME AND SITUATION WITH CONFUSION AT TIMES;ABLE TO VOICE NEEDS. HYPER TALKATIVE WITH OTHER PATIENTS. MOOD IS EUTHYMIC. AMINATED DURING CONVERSATION THIS AFTERNOON; STILL REMAINS GRANDIOUS. DENIES ANY HALLUCINATIONS, DELUSIONS, HI/SI. RECEIVES LIDODERM PATCH TO BACK FOR PAIN. TYLENOL 650MG PO FOR THROAT PAIN AND EFFECTIVE. MEDICATION COMPLIANT WITH EDUCATION PROVIDED. Q 15 MINUTE SAFETY CHECKS MAINTAINED. 1 PERSON ASSIST NEED FOR ACTIVITIES OF DAILY LIVING, CONTINENT OF BOWEL AND BLADDER, SET UP FOR MEALS, INTAKES ARE GOOD WITH ADQUATE FLUIDS. AMBULATES WITH STEADY GAIT. P: CONTINUE TO MONITOR MOOD, INCREASED CONFUSION, HALLUCINATIONS AND DELUSIONS. PROVIDE ONE ON ONE AND REDIRECTION NEEDED.
[2019-04-25 20:00] VITALS: BP 143/70
--- NOTE | 2019-04-25 21:03 | NUR ---
TYLENOL GIVEN FOR C/O SORE THROAT 12/17. HE THEN BEGAN HIS COMFABUATIONS OF HOW THE TOP SURGEON HERE TOLD HIM HE NEEDS TO STEP BACK AND LET OTHERS HELP HIM. HE WAS THE ONE THAT FIXED ME WHEN I WAS HERE IN THE BASEMENT FOR 3 DAYS. UNABLE TO REDIRECT HE LAID DOWN TO SLEEP
--- NOTE | 2019-04-25 21:42 | NUR ---
STATES TYLENOL HELPED BUT THROAT LOZENGER IS BETTER. LOZENGER GIVEN
--- NOTE | 2019-04-26 00:16 | NUR ---
APPEARS LOZENGER EFFECTIVE. EYES CLOSED RESP EASY NON LABORED
--- NOTE | 2019-04-26 03:03 | NUR ---
24 HR chart check completed.
[2019-04-26 07:31] VITALS: BP 138/61
--- NOTE | 2019-04-26 08:50 | NUR ---
MYNOR MANN CNP ON UNIT TO ASSESS PATIENT.
--- NOTE | 2019-04-26 10:34 | NUR ---
Treatment Plan meeting was held with Dr. Tran, RN,AT, JACK WINDER-S and Electrical Estimator in attendance. Plan for discharge Wednesday. Pt. will return home with his .
--- NOTE | 2019-04-26 11:46 | NUR ---
AM GROUP PT ATTENDED MORNING GROUP THERAPY AND PARTICIPATED IN THE GROUP DISCUSSION TO THE BEST OF HIS ABLILITY. PT DID NOT HAVE A WORKING HEARING AID AND HAD DIFFICULTY UNDERSTANDING THE DISCUSSION BUT WAS STILL ABLE TO KEEP HIS COMMENTS IN CONTEXT. PT WAS LESS VERBAL AND EXPRESSED NO DELUSIONAL IDEATIONS WHILE IN GROUP.
--- NOTE | 2019-04-26 12:51 | NUR ---
SPEECH PATHOLOGY Patient was seen for treatment this date. He was seen during lunchtime meal. Patient was sitting upright in activity room with peers. Patient fed himself and displayed good intake of the meal. He displayed no overt difficulty with any food or liquid item. He stated that his throat was still sore, but seems to be improving. He reported no difficulty swallowing today. Patient ate slowly and in adequate bite size amounts, displaying good use of safety strategies. Staff reported that he ate 100% of breakfast today. As he is tolerating diet and eating well, discharge of dysphagia services is recommended at this time. Thank you for this referral. It has been a pleasure taking part in this patient's care. LINDA DELGADO MSCCC-AIRCRAFT POWERTRAIN REPAIRER
--- NOTE | 2019-04-26 13:53 | NUR ---
PATIENT IS ALERT TO PERSON, PLACE, TIME AND SITUATION WITH CONFUSION AT TIMES;ABLE TO VOICE NEEDS. HYPER TALKATIVE WITH OTHER PATIENTS. MOOD IS EUTHYMIC. DENIES ANY HALLUCINATIONS, DELUSIONS, HI/SI. RECEIVES LIDODERM PATCH TO BACK FOR PAIN. MEDICATION COMPLIANT WITH EDUCATION PROVIDED. Q 15 MINUTE SAFETY CHECKS MAINTAINED. 1 PERSON ASSIST NEED FOR ACTIVITIES OF DAILY LIVING, CONTINENT OF BOWEL AND BLADDER, SET UP FOR MEALS, INTAKES ARE GOOD WITH ADQUATE FLUIDS. AMBULATES WITH STEADY GAIT. P: CONTINUE TO MONITOR MOOD, INCREASED CONFUSION, HALLUCINATIONS AND DELUSIONS. PROVIDE ONE ON ONE AND REDIRECTION NEEDED.
--- NOTE | 2019-04-26 15:42 | NUR ---
PM GROUP/CARDS PT ATTENDED AND PARTICIPATED IN AFTERNOON GROUP THERAPY. PT WAS FOCUSED, ON TASK AND LESS TALKATIVE. PT EXPRESSED NO DELUSIONS OF GRANDIEUR AND CONVERSATION WAS WITHIN CONTEXT. PT IS PLEASANTLY CONFUSED.
--- NOTE | 2019-04-26 17:31 | NUR ---
SHIFT CHART CHECK COMPLETED.
[2019-04-26 19:54] VITALS: BP 132/64
--- NOTE | 2019-04-26 21:21 | NUR ---
Patient alert to person,place,time,and situation with confusion noted at times. No signs of any hallucinations noted at this time. Patient compliant with HS medications without any difficulty. Redirected/reoriented as needed. Provided emotional support also as needed. Plan to continue to encourage medication compliance and continue to provide emotional support. Also continue to redirect/reorient when needed/appropriate. Will continue to monitor moods and behaviors. Q 15 minute safety checks continued and maintained. See [facility] flowsheet for further documentation.
--- NOTE | 2019-04-27 00:07 | NUR ---
24 HR chart check completed.
--- NOTE | 2019-04-27 05:12 | NUR ---
Patient slept approximately 2 hours throughout shift with a few awakenings. Q 15 minute safety checks continued and maintained.
[2019-04-27 08:00] VITALS: BP 118/68
--- NOTE | 2019-04-27 09:56 | NUR ---
DR FRANCIS ON UNIT TO SEE PATIENT
--- NOTE | 2019-04-27 10:28 | NUR ---
Treatment team meeting held with Dr Tran, RN, and KAY. Pt needs further medication adjustment. Plan is for pt to return home next week with community mental health follow-up and [facility] services.
--- NOTE | 2019-04-27 11:52 | NUR ---
AM GROUP PT ATTENDED MORNING GROUP THERAPY AND PARTICIPATED BY PLAYING CARDS WITH PEERS. PT WAS QUIET AND FOCUSED ON THE GAME. PT ONLY SPOKE OCCASIONALLY AND EXPRESSED NO DELUSIONAL IDEATIONS.
--- NOTE | 2019-04-27 13:37 | NUR ---
Met with pt's Veronica prior to her visiting pt and after she visited with him. Veronica stated that she does see an improvement in pt. He is not voicing the delusions of grandeur as he had been. Patient continues to be hyperverbal but this has also lessened in intensity. Discussed tentative discharge for early next week.
--- NOTE | 2019-04-27 14:28 | NUR ---
P: PT REMAINS HYPERVERBAL AT TIMES, THOUGH INTERRUPATBLE. I: PROVIDE EMOTIONAL SUPPORT AND 1:1 FOR PT TO VOICE FEELINGS, ENCOURAGE MED COMPLIANCE AND PROVIDE MED EDUCATION R: PT ALERT TO PERSON, PLACE AND TIME. PT MED COMPLIANT WITHOUT DIFFICULTY, MED EDUCATION PROVIDED. PT INTERACTIVE WITH STAFF AND PEERS. NO HALLUCINATIONS OR DELUSIONS NOTED. PT DENIES ANT SUICIDAL THOUGHTS. PT AMBULATORY THROUGHOUT UNIT, GAIT STEADY. PT CONTINENT OF BOWL AND BLADDER. P: MONITOR PT BEHAVIORS ON Q15 MIN SAFETY CHECKS, ENCOURAGE MED COMPLIANCE AND PROVIDE MED EDUCATION, PROVIDE EMOTIONAL SUPPORT AND 1:1 FOR PT TO VOICE FEELINGS, ENCOURAGE GROUP PARTICIPATION AND SOCIALIZATION.
--- NOTE | 2019-04-27 16:09 | NUR ---
PM GROUP/WATERCOLORS PT ATTENDED AFTERNOON GROUP THERAPY AND PARTICIPATED BY WORKING ON A WATERCOLOR. PT WAS QUIET WHILE WORKING BUT BECAME HYPERVERBAL WHEN "TAKING A BREAK"
[2019-04-27 19:48] VITALS: BP 117/66
--- NOTE | 2019-04-27 23:48 | NUR ---
NO ADVERSE BEHAVIORS NOTED. PT ALERT AND ORIENTED X4. MOOD STABLE. PT CALM, COOPERATIVE, AND INTERACTIVE. PT MEDICATION COMPLIANT WITHOUT DIFFICULTY AFTER REVIEW. PT DENIES SI/HI AND HALLUCINATIONS NO NOTED RESPONDING TO INTERNAL STIMULI. PT ABLE TO MAKE NEEDS KNOWN, AMBULATORY WITH A STEADY GAIT. NO PHYSICAL COMPLAINTS VOICED. PT CURRENTLY LAYING DOWN WITH EYES CLOSED, RESPIRATIONS EASY AND REGULAR, NO SIGNS OR SYMPTOMS OF DISTRESS NOTED. PLAN IS TO CONTINUE TO MONITOR MOODS AND BEHAVIORS. PROVIDE 1:1 WITH THERAPEUTIC INTERVENTIONS. ENCOURAGE MEDICATION COMPLIANCE. MAINTAIN Q 15 MIN CHECKS.
--- NOTE | 2019-04-28 05:43 | NUR ---
24 HOUR CHART CHECK COMPLETED.
--- NOTE | 2019-04-28 06:06 | NUR ---
PATIENT OBSERVED ON Q 15 MIN CHECKS TO HAVE SLEPT APPROX 7 HOURS WITH NO AWAKENINGS OR SIGNS AND SYMPTOMS OF DISTRESS NOTED.
--- NOTE | 2019-04-28 08:15 | NUR ---
Treatment Plan meeting was held this a.m. with Dr. Tran, RN, AT, GIS SOFTWARE ENGINEER-S and Health Data Administrator in attendance. Plan for discharge next week. Pt. will return home with his at discharge.
[2019-04-28 08:52] VITALS: BP 135/80
--- NOTE | 2019-04-28 11:46 | NUR ---
ALERT AND ORIENTED TO PERSON AND PLACE. PT CONTINUES TO LAY IN BED. C/O THROAT HURTING AND STARTING TO GET A HEADACHE, REFUSED TYLENOL AT THIS TIME. PLEASANTLY CONFUSED AT TIMES. NO HALLUCINATIONS OR DELUSIONS NOTED. DENIES SI/HI. BEHAVIORS MONITORED WITH Q15 MINUTE SAFETY CHECKS. SEE [facility] FLOWSHEET FOR SPECIFIC MONITORING. MEDICATION COMPLIANT WITHOUT DIFFICULTY. MEDICATION EDUCATION PROVIDED AND PT VERBALIZED UNDERSTANDING.
--- NOTE | 2019-04-28 11:50 | NUR ---
AM GROUP PT DID NOT ATTEND MORNING GROUP THERAPY. PT WAS LAYING DOWN AFTER BREAKFAST.
--- NOTE | 2019-04-28 15:43 | NUR ---
PM GROUP PT ATTENDED AND PARTICIPATED IN ALL GROUP ACTIVITIES. PT DID NOT EXPRESS ANY GRANIOUS DELUSIONS AND WAS NOT HYPERTALKATIVE. PT WAS JOKING AND CONVERSATION WAS IN CONTEXT.
--- NOTE | 2019-04-28 15:49 | NUR ---
Orders received to resume Home Health Services at discharge. Pt. current with [facility]. Ordered Nurse, PT and OT to follow. Faxed orders and Clinical Information to [facility]
[2019-04-28 20:02] VITALS: BP 118/66
--- NOTE | 2019-04-28 21:20 | NUR ---
Patient alert to person,place,time,and situation with confusion noted at times. No signs of any hallucinations noted at this time. Patient pleasant,cooperative and interactive with staff and other patients this evening. Patient compliant with HS medications without any difficulty. Redirected/reoriented as needed. Provided emotional support also as needed. Plan to continue to encourage medication compliance and continue to provide emotional support. Also continue to redirect/reorient when needed/appropriate. Will continue to monitor moods and behaviors. Q 15 minute safety checks continued and maintained. See [facility] flowsheet for further documentation.
--- NOTE | 2019-04-29 00:12 | NUR ---
24 HR chart check completed.
--- NOTE | 2019-04-29 05:37 | NUR ---
Patient slept approx. 5 hours throughout shift. Q 15 minute safety checks continued and maintained.
[2019-04-29 08:02] VITALS: BP 120/62
--- NOTE | 2019-04-29 12:14 | NUR ---
AM GROUP/EXERCISE/MUSIC/GAME PT ATTENDED AND PARTICIPATED IN ALL GROUP ACTIVITY. PT PLEASANT BUT HYPERVERBAL. NO AGITATION,PARANOID DELUSIONS, OR GRANDIOUS BEHAVIORS EXPRESSED AT THIS TIME. PT WILL CONTINUE TO BE ENCOURAGED TO ATTEND AND AND PARTICIPATE IN FUTURE [facility] SESSIONS.
--- NOTE | 2019-04-29 15:47 | NUR ---
ALERT AND ORIENTED TO PERSON AND PLACE. C/O THROAT HURTING. PLEASANTLY CONFUSED AT TIMES. NO HALLUCINATIONS OR DELUSIONS NOTED. DENIES SI/HI. BEHAVIORS MONITORED WITH Q15 MINUTE SAFETY CHECKS. SEE [facility] FLOWSHEET FOR SPECIFIC MONITORING. MEDICATION COMPLIANT WITHOUT DIFFICULTY. MEDICATION EDUCATION PROVIDED AND PT VERBALIZED UNDERSTANDING.
--- NOTE | 2019-04-29 15:59 | NUR ---
PM GROUP/BEADING/MUSIC PT ATTENDED AND PARTICPATED THE FIRST HALF OF GROUP ON BEADING BUT THE REST OF THE TIME HYPERVERBAL. NO AGITATION OR PARANOID DELUSIONS EXPRESSED AT THIS TIME. PT WILL CONTINUE TO ATTEND AND PARTICIPATE IN GROUP TO BEST OF ABILITY.
[2019-04-29 19:52] VITALS: BP 144/80
--- NOTE | 2019-04-29 21:40 | NUR ---
Patient alert to person,place,time,and situation with confusion noted at times. No signs of any hallucinations noted at this time. Patient pleasant,cooperative and interactive with staff and other patients this evening.Patient c/o sore throat. Will medicate with Cepacol lozenge prn as per doctor's order for sore throat. Patient compliant with HS medications without any difficulty. Redirected/reoriented as needed. Provided emotional support also as needed. Plan to continue to encourage medication compliance and continue to provide emotional support. Also continue to redirect/reorient when needed/appropriate. Will continue to monitor moods and behaviors. Q 15 minute safety checks continued and maintained. See [facility] flowsheet for further documentation.
--- NOTE | 2019-04-30 00:19 | NUR ---
24 HR chart check completed.
--- NOTE | 2019-04-30 06:04 | NUR ---
Patient slept approx. 6 hours throughout shift. Q 15 minute safety checks continued and maintained.
[2019-04-30 07:32] VITALS: BP 110/77
--- NOTE | 2019-04-30 07:44 | NUR ---
Patient resting quietly with no c/o discomfort. Respirations easy and regular. Vital signs stable. No overt distress. GIVENS,JOVANNY
--- NOTE | 2019-04-30 12:06 | NUR ---
AM GROUP/EXERCISE/MUSIC/GAMES PT IN ATTENDANCE AND PARTICIPATED THOROUGH OBSERVATION AND DISCUSSION. PT HYPERVERBAL ENTIRE GROUP. NO AGITATION OR PARANOID DELUSIONS EXPRESSED AT THIS TIME. PT WILL CONTINUE TO ATTEND AN DPARTICIPATE TO BEST OF PT ABILITY.
[2019-04-30 19:54] VITALS: BP 122/63
--- NOTE | 2019-04-30 21:36 | NUR ---
Patient alert to person,place,time,and situation with confusion noted at times. No signs of any hallucinations noted at this time. Patient pleasant,cooperative and interactive with staff and other patients this evening.Patient c/o sore throat. Will medicate with Cepacol lozenge prn as per doctor's order for sore throat. Patient in diningroom with other patients watching movie on TV. Patient less talkative this evening. Patient compliant with HS medications without any difficulty. Redirected/reoriented as needed. Provided emotional support also as needed. Plan to continue to encourage medication compliance and continue to provide emotional support. Also continue to redirect/reorient when needed/appropriate. Will continue to monitor moods and behaviors. Q 15 minute safety checks continued and maintained. See [facility] flowsheet for further documentation.
--- NOTE | 2019-05-01 00:13 | NUR ---
24 HR chart check completed.
--- NOTE | 2019-05-01 05:48 | NUR ---
Patient slept approx. 7.5 hours throughout shift. Q 15 minute safety checks continued and maintained.
[2019-05-01 07:52] VITALS: BP 137/72
--- NOTE | 2019-05-01 08:15 | NUR ---
Treatment Plan meeting was held with LANDY Phan RN, AT, BONITA-S and News Production Supervisor in attendance. Plan for discharge Wednesday. Pt. will return home at discharge.
--- NOTE | 2019-05-01 09:44 | NUR ---
ON UNIT TO SEE PT AT THIS TIME.
--- NOTE | 2019-05-01 09:46 | NUR ---
PRN CEPACOL LOZENGE GIVEN AT THIS TIME PER PT REQUEST FOR C/O SORE THROAT. WILL MONITOR FOR EFFECTIVENESS.
--- NOTE | 2019-05-01 10:45 | NUR ---
CEPACOL EFFECTIVE. PT VOICES NO FURTHER C/O AT THIS TIME.
--- NOTE | 2019-05-01 11:44 | NUR ---
AM GROUP/EXERCISE PT ATTENDED AND PARTICIPATED IN ALL GROUP ACTIVITIES. PT EXPRESSED NO GRANDIOUS DELUSIONS WHILE IN GROUP. PT IS PLEASANTLY CONFUSED BELIEVING THAT HE COULDN'T LEAVE TODAY BECAUSE HIS HAD TO GET HER HAIR DONE. PT WAS TALKATIVE BUT RESPONDED TO SOCIAL CUES AND KNEW WHEN TO BE QUIET.
--- NOTE | 2019-05-01 15:33 | NUR ---
Shift chart check completed.
--- NOTE | 2019-05-01 15:42 | NUR ---
PM GROUP/MOVIE AND MANICURES PT ATTENDED AFTERNOON GROUP AND PARTICIPATED BY READING A BOOK FOR A SHORT TIME AND CONVERSING WITH PEERS AND THIS CRYPTANALYST. PT IS PLEASANTLY CONFUSED. PT WAS TALKATIVE BUT REALIZED THAT HE WAS BOTHERING A PEER AND MOVED HIS SEAT.
--- NOTE | 2019-05-01 15:55 | NUR ---
P- MILD CONFUSION AND MEMORY GAPS NOTED. I- ORIENTATION, MOOD AND BEHAVIOR ASSESSED. ASSESSED PT FOR SI/HI, INTENT OR PLAN. ASSESSED PT FOR S/S HALLUCINATIONS, PARANOIA AND/OR DELUSIONS. MEDICATIONS ADMINISTERED PER PHYSICIAN'S ORDERS. ASSISTANCE WITH ADL CARE PROVIDED NEEDED. ENCOURAGED PT TO ATTEND AND PARTICIPATE IN [facility] GROUPS AND ACTIVITIES. R- PT IS ALERT AND ORIENTED TO PERSON, PLACE, APPROXIMATE TIME AND SITUATION. MILD CONFUSION AND MEMORY GAPS NOTED. RESPS EASY AND EVEN ON ROOM AIR. MOOD IS STABLE, AFFECT ANIMATED AT TIMES. SPEECH IS LOUD, COHERENT, PT CONTINUES TO BE VERY TALKATIVE BUT RESPONDS MORE APPROPRIATELY TO SOCIAL CUES AND IS ABLE TO STOP HIMSELF FROM INTERRUPTING OTHERS. PT DENIES SI/HI, INTENT OR PLAN. PT DENIES HALLUCINATIONS, NO RESPONSE TO INTERNAL STIMULI NOTED. NO PARANOIA OR DELUSIONS NOTED. NO VOICED GRANDIOSE DELUSIONS. PT IS MEDICATION COMPLIANT WITHOUT DIFFICULTY. PT IS AMBULATORY ON UNIT WITH STEADY GAIT, INDEPENDENT WITH ADLS, CONTINENT OF BOWEL AND BLADDER. PT DISPLAYS GOOD APPETITE FOR MEALS WITH ADEQUATE FLUID INTAKE. NO DISTRESS NOTED. P- PLAN TO CONTINUE CURRENT TREATMENT, CONTINUE TO MONITOR MOOD AND BEHAVIORS, PROVIDE APPROPRIATE REORIENTATION, REDIRECTION AND 1:1 NEEDED. CONTINUE TO ENCOURAGE MEDICATION COMPLIANCE WELL GROUP ATTENDANCE AND PARTICIPATION.
[2019-05-01 19:55] VITALS: BP 147/70
--- NOTE | 2019-05-01 20:38 | NUR ---
PT REQUESTED CEPOCOL THROAT LOZANGE, GIVE AT THIS TIME
--- NOTE | 2019-05-01 21:53 | NUR ---
PT PLEASANT COOPERATIVE MEDICATION COMPLIANT, INTERACTING APPROPRIATLEY WITH PEERS, TALKING AND LAUGHING. PT NOTED TO HAVE HIS DENTURES IN HIS RIGHT UPPER FLANNEL POCKET AND OTHER BELONGINGS IN HIS LEFT FLANNEL POCKET. PTS POCKETS SEARCHED AT BED TIME FOR OTHER ITEMS. NO SI/HI OR DELUSIONS. PT ANTICIPATING DISCHARGE FOR TOMORROW, AT THIS TIME PT RESTING IN BED.
--- NOTE | 2019-05-02 04:06 | NUR ---
PT UP AT THIS TIME STATING " I CAN'T GO HOME TODAY, I HAVE TO GET A TRANSPLANT OF MY FACE FROM HERE TO HERE (POINTING TO CHIN - FORHEAD) REDIRECTED BACK TO BED TO CONTINUE TO REST.
--- NOTE | 2019-05-02 05:59 | NUR ---
PT UP SEVERAL TIMES THROUGH THE NIGHT 5.5 HOURS BROKEN SLEEP
--- NOTE | 2019-05-02 06:35 | NUR ---
PT UP TO [facility] THIS AM. TALKED TO PT ABOUT HAVING ONLY 1 HEARING AIDE IN HIS STORAGE CASE, PT PROMPTLY REPLIED " WELL THATS BECAUSE THE OTHER ONE IS HERE IN MY POCKET" PT GAVE US HEARING AIDE WHICH IS NOW IN CASE CHARGING,
[2019-05-02 07:48] VITALS: BP 131/71
--- NOTE | 2019-05-02 08:15 | NUR ---
Treatment Plan meeting was held with Emilie BILL, RN, AT, MUFFLE OPERATOR-S and Cdl Instructor in attendance. Plan for discharge today. Pt. to return home with his . [facility] to follow. Pt. has Visiting Physicians who will see patient on early afternoon. Mental Health Follow up with [facility].
[2019-05-02] MEDS ORDERED: EXELON13.3 MG/21 T (08:54)
[2019-05-02] MEDS ORDERED: ROZEREM8 MG PO (08:54)
[2019-05-02] MEDS ORDERED: LATU40TA PO (08:54)
[2019-05-02] MEDS ORDERED: DIVALPROEX SOD500 MG PO (08:54)
[2019-05-02] MEDS ORDERED: MEMANTINE HCL10 MG PO (08:54)
--- NOTE | 2019-05-02 09:48 | NUR ---
Call placed to hospitalist cell number [phone] Sheikh, spoke to Dr. Fair, made aware of discharge for today.
--- NOTE | 2019-05-02 10:32 | NUR ---
AND ON UNIT TO SEE PT AT THIS TIME.
--- NOTE | 2019-05-02 10:53 | NUR ---
NO ADVERSE MOODS OR BEHAVIORS THIS SHIFT. PT IS ALERT AND ORIENTED TO PERSON, PLACE, APPROXIMATE TIME AND SITUATION. MILD CONFUSION AND ST MEMORY GAPS NOTED AT TIMES. RESPS EASY AND EVEN ON ROOM AIR. MOOD IS STABLE, AFFECT BROAD RANGE, SPEECH IS LOUD, COHERENT, ABLE TO MAKE NEEDS KNOWN WITHOUT DIFFICULTY. PT DENIES SI/HI, INTENT OR PLAN. PT DENIES HALLUCINATIONS, NO RESPONSE TO INTERNAL STIMULI NOTED. NO PARANOIA OR DELUSIONS NOTED. PT VOICES READINESS FOR DISCHARGE AND STATES "BUT I'LL MISS MY NEW FAMILY HERE THOUGH". PT IS MEDICATION COMPLIANT WITHOUT DIFFICULTY. NO DISTRESS NOTED. PLAN TO CONTINUE CURRENT TREATENT, ASSIST PT IN PREPARING FOR HOSPITAL DISCHARGE TODAY.
--- NOTE | 2019-05-02 11:35 | NUR ---
PT DISCHARGED AT THIS TIME VIA WHEELCHAIR ESCORT BY MENTAL HEALTH WORKER TO HOME WITH VIA PRIVATE VEHICLE. ALL DISCHARGE INSTRUCTIONS WERE REVIEWED WITH PT'S /DPOAH PRIOR TO DISCHARGE. ALL QUESTIONS ANSWERED. ALL PERSONAL BELONGINGS WERE SENT WITH THE PT INCLUDING LOCK BOX ITEMS, HEARING AIDES WITH CASE AND MARKET EDITOR AND HOME MEDS FROM PHARMACY. PT LEFT THE UNIT IN STABLE CONDITION AT 1135.
== END 2019-05-02 11:38 | disposition home health service (06) | DRG 885 ==
LOC: 3N 22:53
PROVIDERS: ADMIT Psychiatry & Neurology Psychiatry
DX: F31.9 Bipolar disorder, unspecified (principal); F23 Brief psychotic disorder; E44.0 Moderate protein-calorie malnutrition; J44.9 Chronic obstructive pulmonary disease, unspecified; I10 Essential (primary) hypertension; F17.210 Nicotine dependence, cigarettes, uncomplicated; G30.9 Alzheimer's disease, unspecified; F02.80 Dementia in other diseases classified elsewhere, unspecified severity, without behavioral disturbance, psychotic disturbance, mood disturbance, and anxiety; M81.0 Age-related osteoporosis without current pathological fracture; M54.9 Dorsalgia, unspecified; G89.29 Other chronic pain; D64.9 Anemia, unspecified; E55.9 Vitamin D deficiency, unspecified; E53.8 Deficiency of other specified B group vitamins; L71.1 Rhinophyma; M25.552 Pain in left hip; Z88.0 Allergy status to penicillin; Z88.6 Allergy status to analgesic agent; Z99.81 Dependence on supplemental oxygen; F41.9 Anxiety disorder, unspecified; Z80.9 Family history of malignant neoplasm, unspecified; Z79.899 Other long term (current) drug therapy; Z68.28 Body mass index [BMI] 28.0-28.9, adult